=== PATIENT | female | born 1950 | race Caucasian/White ===

== ENCOUNTER 2016-12-12 14:21 | Emergency (ER) | payer OTHER ==
[~2016-12-12] VITALS: Ht 177.8 cm; Wt 94.8 kg
[2016-12-12] MEDS ORDERED: PHENYTOIN SODI100 MG PO (14:50)
[2016-12-12] MEDS ORDERED: METOPROLOL TART25 M1 PO (14:50)
--- NOTE | 2016-12-12 16:13 | ULTRASOUND REPORT ---
EXAMINATION: US DUPLEX EXTREMITY VEINS, RIGHT CLINICAL INFORMATION: Right leg swelling. Evaluate for deep vein thrombosis. COMPARISON: None TECHNIQUE: Grayscale imaging of the right lower extremity veins was performed, with and without compression, along with color Doppler and spectral Doppler interrogation. FINDINGS: There is echogenic thrombus filling the lumen of the common femoral vein. This is nearly completely occlusive at this level. Within the upper thigh, the visualized greater saphenous vein is patent. There is slow flow within the superficial femoral vein of the proximal, mid and distal thigh. The ocular care technologist notes that the popliteal vein was difficult to evaluate due to presence of soft tissue swelling. It was difficult to exclude nonocclusive thrombus in the popliteal vein, but suspicion for popliteal vein thrombus is low. The tibioperoneal trunk appears patent on the color Doppler images. No Bee's cyst. IMPRESSION: There is acute deep vein thrombosis filling the right common femoral vein and slow venous flow is observed below this level. It was difficult to exclude (low suspicion) nonocclusive thrombus in the popliteal vein. The critical test result was discussed with Dr. Newsome at 4:06 PM on 12/12/2016 and it was ascertained that the content and the importance of the findings was understood at the time of the direct communication.
--- NOTE | 2016-12-12 16:25 | ED UPPER/LOWER EXTREMITY COMPL ---
History of Present Illness General Chief Complaint: Lower Extremity Problems Stated Complaint: LOWER LEG PAIN Source: patient, family Exam Limitations: no limitations Vital Signs & Intake/Output Vital Signs & Intake/Output Vital Signs Date Time Temp Pulse Resp B/P Pulse O2 O2 Flow FiO2 Ox Delivery Rate 12/12 1839 97.6 112 22 151/63 97 Nasal 4.0L Cannula 12/12 1651 94 Nasal 4.0L Cannula 12/12 1645 122 24 160/74 94 Nasal 4.0L Cannula 12/12 1425 96.9 112 18 163/84 95 Room Air Allergies Coded Allergies: No Known Allergies (12/12/16) Reconcile Medications Metoprolol Tartrate 25 MG TABLET 1 TAB PO DAILY HEART (Reported) Phenytoin Sodium Extended 100 MG CAPSULE 1 CAP PO TID SEIZURES (Reported) Triage Note: PT C/O RLE SWELLING STARTING THIS AM.. PT DENIES PAIN AND STATES THAT IT JUST FEELS TIGHT. Triage Nurses Notes Reviewed? yes HPI: Miss Min is 66-year-old female with past medical history of seizures on Dilantin presenting to the emergency department for right leg swelling. States she woke up this morning in her right leg felt very weak and more swollen than the other. She does endorse bilateral lower extremity swelling which is chronic in nature however, the right leg is significantly more swollen than the left leg at this point in time. Patient denies any recent travel, immobilization, or surgeries. She does not use any exogenous estrogen. Patient denies chest pain, shortness of breath, abdominal pain, nausea, vomiting, diarrhea, fevers, chills. Past History Travel History Traveled to [place] past 21 day No Medical History Any Pertinent Medical History? see below for history Neurological: seizure Cardiovascular: FAST HEART RATE Surgical History Surgical History: none Psychosocial History What is your primary language Maltese Tobacco Use: Current Daily Use Daily Tobacco Use Amount/Type: => 5 Cigarettes daily Family History Hx Contributory? No Review of Systems Review of Systems Constitutional: Reports: no symptoms. Comments Review of systems: See HPI, all other systems negative. Constitutional, no chills, no fever, no weight loss. HEENT: No visual changes, no sore throat, no congestion, Cardiovascular: No chest pain, no palpitations, no orthopnea, or ankle swelling. Skin: No jaundice, no rashes Respiratory, no dyspnea, cough, sputum, or hemoptysis GI no nausea, no vomiting no dysuria, no hematuria, Muscle skeletal: No back pain, no neck pain. R leg pain and R leg swelling. Neurologic, no numbness no confusion Psych: No stress, anxiety, depression Heme/endocrine: No bruising, no bleeding polyuria, polydipSIA Physical Exam Physical Exam General Appearance: well developed/nourished, no apparent distress, alert, awake Head: atraumatic, normal appearance Eyes: Bilateral: normal appearance, PERRL, EOMI. Ears, Nose, Throat: normal pharynx, normal ENT inspection Neck: normal inspection, supple, full range of motion Cardiovascular/Respiratory: normal breath sounds, normal peripheral pulses, regular rate/rhythm, no respiratory distress Gastrointestinal: soft, nontender Back: normal inspection, normal range of motion Leg Right: swelling, assymetry, warm to touch Skin: intact, R leg warm to touch w/ mild erythema Progress Differential Diagnosis: cellulitis, compartment syndrome, DVT, fracture, sprain Plan of Care: Orders Procedure Date/time Status PARTIAL THROMBOPLASTIN TIME 12/12 2330 Active LACTIC ACID 12/12 1925 Active ARTERIAL BLOOD GAS (GEN) 12/12 1848 Active Add-on Test (ER Only) 12/12 1842 Active ECHOCARDIOGRAM 12/12 1842 Active EKG 12/12 1648 Active TROPONIN LEVEL 12/12 1635 Active B-TYPE NATRIURETIC PEP (BNP) 12/12 1635 Active PARTIAL THROMBOPLASTIN TIME 12/12 1625 Complete PROTHROMBIN TIME 12/12 1625 Complete LACTIC ACID 12/12 1625 Active CBC WITHOUT DIFFERENTIAL 12/12 1625 Complete BASIC METABOLIC PANEL 12/12 1625 Active Laboratory Tests 12/12/16 1635: Anion Gap 15, Estimated GFR > 60, BUN/Creatinine Ratio 26.0 H, Glucose 132 H, Lactic Acid 3.7 H, Calcium 10.1, Troponin I Pending, Rzu-W-Nbohesrcjhr Pept Pending, PT 12.1, INR 1.15, APTT 28, CBC w Diff NO MAN DIFF REQ, RBC 5.17, MCV 94.5, MCH 30.5, RDW 14.1, MPV 6.6 L, Gran % 74.8, Lymphocytes % 18.3 L, Monocytes % 5.4, Eosinophils % 1.1, Basophils % 0.4, Absolute Granulocytes 12.3 H, Absolute Lymphocytes 3.0, Absolute Monocytes 0.9 H, Absolute Eosinophils 0.2 , Absolute Basophils 0.1, PUBS MCHC 32.3 L 66 yo f w/ hx of seizures here for asymetric leg swelling. Patient denies any trauma to the area. Unable to PERC patient given age, but no other risk factors. R leg significant only more swollen than the left leg. However, the right leg is also warm to touch and slightly erythematous in comparison to the left leg. Likely superficial mild cellulitis, we will treat with by mouth Bactrim for now. Pt's EKG has evidence of R heart strain w/ [id number]. No trauma to suggest fracture. Leg is not hence therefore it is unlikely at the patient as compartment syndrome. Possible DVT, we'll obtain ultrasound to assess. US positive for DVT. Patient started on heparin. 4:30 PM Patient ambulated back from bathroom. Noted to be SOB by nurse Yamel. Vitals showed patient was tachycardic and hypoxic to 80 % on RA. Given this, will order basic labs to assess for creatitine function, likely obtain CTA PE. Pt ordered for 1L NS. Attempted to perform bedside US to evaluate for R heart strain. However, had a difficult time obtaining any images. Unable to evaluate. 6:30 PM Call from radiology. Pt has extensive clot burdern w/ saddle PE. Called [facility] for transfer. Discussed with Dr. Swenson. Will transfer patient directly to ICU for admission. Patient is aware of the plan and consets to transfer. (ANDREINA CANAS,[facility]) Diagnostic Imaging: Viewed by Me: CT Scan, Ultrasound. Discussed w/RAD: CT Scan, Ultrasound. Radiology Impression: R femoral DVT and saddle pulmonary embolism w/ extensive clot burden Initial ED EKG: sinus tachycardia w/ incomplete RBBB Departure Departure Time of Disposition: 1907 Disposition: OTHER [facility] (ACUTE) Condition: Stable Clinical Impression Primary Impression: Saddle embolus of pulmonary artery with acute cor pulmonale Qualifiers: Chronicity: acute Qualified Code: I26.02 - Saddle embolus of pulmonary artery with acute cor pulmonale Secondary Impressions: DVT (deep venous thrombosis) Qualifiers: DVT location: lower extremity Affected thrombotic vein of extremity : femoral Laterality: right Chronicity: acute Qualified Code: I82.411 - Acute embolism and thrombosis of right femoral vein Ruled Out Impressions: Saddle embolism of pulmonary artery Referrals: CB WING MD (PCP/Family) Additional Instructions: You will be transferred to [place] for further care of your pulmonary embolism. Departure Forms: Customer Survey General Discharge Information Critical Care Note Critical Care Note Critical Care Time: 30-74 min (45)
[2016-12-12 16:54] LABS: ABSOLUTE BASOPHIL COUNT 0.1 /CUMM (0.0-0.2); ABSOLUTE EOSINOPHIL COUNT 0.2 /CUMM (0.0-0.7); ABSOLUTE GRANULOCYTE CT 12.3 /CUMM (1.4-6.5); ABSOLUTE MONOCYTE COUNT 0.9 /CUMM (0.10-0.60); BASOPHIL % 0.4 % (0.0-2.0); EOSINOPHIL % 1.1 % (0-5); GRANULOCYTE % 74.8 % (42.2-75.2); HEMATOCRIT 48.8 % (37-47); MEAN CORPUSCULAR HGB 30.5 PG (27.0-31.0); MEAN CORPUSCULAR HGB CONC 32.3 G/DL (33.0-37.0); MEAN CORPUSCULAR VOLUME 94.5 FL (81.0-99.0); MEAN PLATELET VOLUME 6.6 FL (7.4-10.4); PLATELET COUNT 243 /CUMM (130-400); RBC DISTRIBUTION WIDTH 14.1 % (11.5-14.5); RED BLOOD CELL CT 5.17 /CUMM (4.20-5.40); WHITE BLOOD CELL COUNT 16.4 /CUMM (4.8-10.8)
[2016-12-12 17:03] LABS: PT 12.1 SEC (9.4-12.5); PTT 28 SEC (25-37)
[2016-12-12 18:39] VITALS: BP 151/63
--- NOTE | 2016-12-12 18:47 | CT SCAN REPORT ---
EXAMINATION: CT ANGIOGRAM OF THE CHEST WITH AND WITHOUT CONTRAST (CT PULMONARY ANGIOGRAM FOR PE) CLINICAL INFORMATION: Shortness of breath. Hypoxic. COMPARISON: None TECHNIQUE: Prior to contrast administration, noncontrast localization images were obtained. Subsequently, multidetector volumetric imaging was performed from the thoracic inlet to below the diaphragms following the administration of 80 mL Omnipaque 350 intravenous contrast. No contrast reaction reported Sagittal, coronal, and MIP oblique sagittal reformatted images were obtained on the CT workstation, uploaded to PACS, and reviewed. Total exam dose-length product 518.67 mGy-cm FINDINGS: QUALITY OF STUDY/CONTRAST BOLUS: Satisfactory. PULMONARY ARTERIES: There is a saddle embolus. Extensive emboli are seen in the right and left main pulmonary artery extending into all lobes of both lungs. There is bulging of the cardiac septum consistent with right heart strain. THORACIC AORTA: No dissection or aneurysm. The ascending aorta measures 3.6 cm transverse. LUNG: Rubio emphysematous lucencies throughout the lung. No acute infiltrate. Scarring at lung bases. 1.9 x 1.3 cm nodular opacity at the posterior left costophrenic angle. PLEURA: No pleural effusion or pneumothorax. MEDIASTINUM: Enlarged right lobe of thyroid. This measures 8 cm AP and displaces the trachea to left. Left lobe thyroid measures 3.5 cm AP. Ultrasound can be used for further assessment of the thyroid. CHEST WALL/AXILLA: No axillary or internal mammary lymphadenopathy. OSSEOUS STRUCTURES: No acute or suspicious osseous abnormality. UPPER ABDOMEN: Unremarkable. No reflux of contrast into the hepatic veins to suggest elevated right heart pressures. IMPRESSION: 1. Extensive bilateral pulmonary bullae including a saddle embolus. Right heart strain. 2. Marked emphysematous changes of lungs. 3. 1.9 x 1.3 cm Nodular opacity at the posterior left costophrenic angle. 4. Enlarged right lobe of thyroid. This critical result was discussed with Dr. Newsome on 12/12/2016, 6:40 PM and it was ascertained that the content and urgency of the report was understood at the time of direct communication. VTE: Positive for pulmonary embolism
--- NOTE | 2016-12-12 18:50 | History & Physical ---
General Information and HPI MD Statement: I have seen and personally examined ESTEFANYESTELLE BARILLAS and documented this H&P. The patient is a 66 year old F who presented with a patient stated chief complaint of []. Allergies/Medications Allergies: Coded Allergies: No Known Allergies (12/12/16) Home Med list Metoprolol Tartrate 25 MG TABLET 1 TAB PO DAILY HEART (Reported) Phenytoin Sodium Extended 100 MG CAPSULE 1 CAP PO TID SEIZURES (Reported) Past History Travel History Traveled to [place] past 21 day No Medical History Neurological: seizure Cardiovascular: FAST HEART RATE Surgical History Surgical History: none
== END 2016-12-12 19:36 | disposition short-term general hospital (02) ==
LOC: ERH 14:21
PROVIDERS: Emergency Medicine
DX: I26.02 Saddle embolus of pulmonary artery with acute cor pulmonale (principal); I82.411 Acute embolism and thrombosis of right femoral vein
CPT/HCPCS: 93005; 93010; 96374; 99291; J1644

== ENCOUNTER 2017-01-01 12:23 | Emergency (ER) | payer OTHER ==
[~2017-01-01] VITALS: Ht 177.8 cm; Wt 93.4 kg
[~2017-01-01 12:23] MED LIST: METOPROLOL TART25 M1 PO; PHENYTOIN SODI100 MG PO
--- NOTE | 2017-01-01 13:22 | ED SKIN/ALLERGY COMPLAINT ---
History of Present Illness General Chief Complaint: Lower Extremity Problems Stated Complaint: "RED DIONY ON R LEG" Source: patient, family, old records Exam Limitations: no limitations Vital Signs & Intake/Output Vital Signs & Intake/Output Vital Signs Date Time Temp Pulse Resp B/P Pulse O2 O2 Flow FiO2 Ox Delivery Rate 01/01 1357 97.2 88 20 160/70 98 Room Air 01/01 1232 96.9 74 18 142/74 96 Room Air Allergies Coded Allergies: No Known Allergies (12/12/16) Reconcile Medications Metoprolol Tartrate 25 MG TABLET 1 TAB PO DAILY HEART (Reported) Phenytoin Sodium Extended 100 MG CAPSULE 1 CAP PO TID SEIZURES (Reported) Warfarin Sodium 5 MG TABLET 1 TAB PO DAILY DVT (Reported) Triage Note: PT TO ED FOR "RED DIONY ON MY UPPER RIGHT THIGH THAT BEGAN THIS MORNING" PT REPORTING SHE WAS RECENTLY SEEN AT [facility] FOR A DVT THAT BECAME A PE DURING HER STAY - STATING IT "STARTED THE SAME WAY BEFORE" PT DENIES ANY CP, SOB, HARP, FEVER, PAIN. CURRENTLY ON COUMADIN, LAST INR CHECKED THURSDAY AND IT WAS 2.4 PER PT. Triage Nurses Notes Reviewed? yes HPI: Patient was recently discharged from the hospital after admission for DVT and PE. Patient was on Lovenox but that was stopped culture: And became therapeutic. Patient woke up this morning and noticed a red area on her right inner thigh. Patient became concerned and comes in for evaluation. Patient denies any pain. There are no fevers or chills. There are no aggravating or mitigating factors. There is no radiation. It is nontender to touch. Past History Travel History Traveled to [place] past 21 day No Medical History Any Pertinent Medical History? 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 No Review of Systems Review of Systems Constitutional: Reports: no symptoms. Respiratory: Reports: no symptoms. Cardiovascular: Reports: no symptoms. GI: Reports: no symptoms. Skin: Reports: see HPI. Neurological/Psychological: Reports: no symptoms. Immunologic/Allergic: Reports: no symptoms. Physical Exam Physical Exam General Appearance: well developed/nourished, alert, awake, anxious, mild distress Eyes: Bilateral: PERRL, EOMI. Respiratory: normal breath sounds, chest non-tender, no respiratory distress, lungs clear Cardiovascular: regular rate/rhythm, normal peripheral pulses Neurologic/Psych: no motor/sensory deficits, awake, alert, oriented x 3, normal mood/affect Comments: 10 cm x 3 cm area of erythema to the right lower inner thigh. It is not hot to the touch. It is nontender. There is no inguinal adenopathy. Progress Differential Diagnosis: abscess/cellulitis, contact dermatitis Plan of Care: Orders Procedure Date/time Status PROTHROMBIN TIME 01/01 1321 Complete COMPREHENSIVE METABOLIC PANEL 01/01 1321 Complete CBC WITHOUT DIFFERENTIAL 01/01 1321 Complete Laboratory Tests 01/01/17 1352: PT 30.5 H, INR 2.94 H, CBC w Diff NO MAN DIFF REQ, RBC 4.78, MCV 92.3, MCH 31.2 H, RDW 14.6 H, MPV 6.5 L, Gran % 78.4 H, Lymphocytes % 14.8 L, Monocytes % 5.7, Eosinophils % 0.8, Basophils % 0.3, Absolute Granulocytes 11.7 H, Absolute Lymphocytes 2.2, Absolute Monocytes 0.9 H, Absolute Eosinophils 0.1 , Absolute Basophils 0, PUBS MCHC 33.8 01/01/17 1342: Anion Gap 11, Estimated GFR > 60, BUN/Creatinine Ratio 22.0, Glucose 107 H, Calcium 9.4, Total Bilirubin 0.7, AST 27, ALT 32, Alkaline Phosphatase 144 H, Total Protein 7.8, Albumin 4.1, Globulin 3.7, Albumin/Globulin Ratio 1.1 Departure Departure Disposition: HOME OR SELF CARE Condition: Stable Clinical Impression Primary Impression: Rash Referrals: CB WING MD (PCP/Family) Additional Instructions: RETURN FOR ANY CONCERNS Departure Forms: Customer Survey General Discharge Information
[2017-01-01] MEDS ORDERED: WARFARIN SODIUM5 M1 PO (13:53)
[2017-01-01 13:57] VITALS: BP 160/70
[2017-01-01 14:14] LABS: ABSOLUTE BASOPHIL COUNT 0 /CUMM (0.0-0.2); ABSOLUTE EOSINOPHIL COUNT 0.1 /CUMM (0.0-0.7); ABSOLUTE GRANULOCYTE CT 11.7 /CUMM (1.4-6.5); ABSOLUTE LYMPH COUNT 2.2 /CUMM (1.2-3.4); ABSOLUTE MONOCYTE COUNT 0.9 /CUMM (0.10-0.60); BASOPHIL % 0.3 % (0.0-2.0); EOSINOPHIL % 0.8 % (0-5); GRANULOCYTE % 78.4 % (42.2-75.2); HEMATOCRIT 44.1 % (37-47); MEAN CORPUSCULAR HGB 31.2 PG (27.0-31.0); MEAN CORPUSCULAR HGB CONC 33.8 G/DL (33.0-37.0); MEAN CORPUSCULAR VOLUME 92.3 FL (81.0-99.0); MEAN PLATELET VOLUME 6.5 FL (7.4-10.4); PLATELET COUNT 166 /CUMM (130-400); RBC DISTRIBUTION WIDTH 14.6 % (11.5-14.5); RED BLOOD CELL CT 4.78 /CUMM (4.20-5.40)
[2017-01-01 14:21] LABS: PT 30.5 SEC (9.4-12.5)
== END 2017-01-01 14:38 ==
LOC: ERH 12:23
PROVIDERS: Emergency Medicine
DX: R21 Rash and other nonspecific skin eruption (principal); Z79.01 Long term (current) use of anticoagulants

== ENCOUNTER 2017-03-17 14:40 | Inpatient (IN) | payer OTHER ==
[~2017-03-17] VITALS: Ht 172.7 cm; Wt 75.8 kg
[~2017-03-17 14:40] MED LIST changes: +WARFARIN SODIUM5 M1 PO
--- NOTE | 2017-03-17 14:54 | ED CRITICAL CARE ---
History of Present Illness General Chief Complaint: General Adult Stated Complaint: BIBA PAIN? Source: family, EMS, W10 Exam Limitations: clinical condition Vital Signs & Intake/Output Vital Signs & Intake/Output Vital Signs Date Time Temp Pulse Resp B/P B/P Pulse O2 O2 Flow FiO2 Mean Ox Delivery Rate 03/19 1600 Nasal 2.0L Cannula 03/19 1402 97.7 110 20 125/90 98 03/19 0828 98.8 115 22 158/88 94 03/19 0800 Nasal 2.0L Cannula 03/19 0000 Nasal 2.0L Cannula ED Intake and Output 03/19 0000 03/18 1200 Intake Total 0 Output Total 425 350 Balance -425 -350 Intake, Oral 0 Output, Urine 425 350 Allergies Coded Allergies: pseudoephedrine (UNKNOWN PER 03/17/17) Reconcile Medications Acetaminophen (Pain & Fever) 325 MG TABLET 2 TAB PO Q4H PRN PAIN/TEMP>101 ( Reported) Acetaminophen (Acephen) 650 MG SUPP.RECT 1 SUPP RI Q4H PRN PAIN/TEMP>101 ( Reported) Aspirin (Ecotrin*) 81 MG TABLET.DR 1 TAB PO DAILY PROPHYLAXIS (Reported) Atorvastatin Calcium 80 MG TABLET 1 TAB PO DAILY CHOLESTEROL (Reported) Bisacodyl (Dulcolax) 10 MG SUPP.RECT 1 SUP RC PRN CONSTIPATION (Reported) Bisacodyl (Dulcolax) 5 MG TABLET.DR 1 TAB PO Q24H PRN CONSTIPATION (Reported) Enoxaparin Sodium 100 MG/ML SYRINGE 100 MG SC Q12H PULMONARY EMBOLISM ( Reported) Fluoxetine HCl 20 MG CAPSULE 1 CAP PO DAILY DEPRESSION (Reported) Furosemide (Lasix) 20 MG TABLET 1 TAB PO DAILY CHRONIC A FIB (Reported) Ipratropium/Albuterol Sulfate (Iprat-Albut 0.5-3(2.5) MG/3 Ml) 0.5 MG-3 MG (2.5 MG BASE)/3 ML AMPUL.NEB 3 ML INH Q6H PRN SOB/WHEEZING WHILE AWAKE (Reported) Lactulose 20 GRAM/30 ML SOLUTION 30 ML PO DAILY CONSTIPATION (Reported) Lorazepam 2 MG/ML ORAL.CONC 0.5 MG SL Q4H PRN INCREASED ANXIETY (Reported) Magnesium Hydroxide (Milk Of Magnesia) 400 MG/5 ML ORAL.SUSP 30 ML PO PRN CONSTIPATION (Reported) Magnesium Hydroxide (Milk Of Magnesia) 400 MG/5 ML ORAL.SUSP 30 ML PO PRN CONSTIPATION (Reported) Metoprolol Tartrate 25 MG TABLET 1 TAB PO Q8H CEREBRAL INFARCTION (Reported) Morphine Sulfate 20 MG/5 ML (4 MG/ML) SOLUTION 5 MG SL AD PRN SEVERE PAIN ( Reported) Morphine Sulfate 20 MG/5 ML (4 MG/ML) SOLUTION 5 MG SL Q4H PRN PAIN/RESP>28 ( Reported) Multivitamin (Multi-Day Vitamins) 1 EACH TABLET 1 TAB PO DAILY SUPPLEMENT ( Reported) Na Phos,M-B/Na Phos,Di-Ba (Fleet Enema) 19 GRAM-7 GRAM/118 ML ENEMA 1 E RC PRN CONSTIPATION (Reported) Ondansetron HCl (Zofran) 4 MG TABLET 1 TAB PO Q4H PRN N/V (Reported) Phenytoin Sodium Extended 100 MG CAPSULE 1 CAP PO TID SEIZURES (Reported) Pregabalin (Lyrica) 25 MG CAPSULE 1 CAP PO QHS RLS (Reported) Protein Supplement (Promod) 946 ML LIQUID 30 ML PO BID SUPPLEMENT (Reported) Tramadol HCl 50 MG TABLET 25 MG PO Q6H PRN PAIN (Reported) Warfarin Sodium 5 MG TABLET 1 TAB PO DAILY DVT (Reported) Triage Nurses Notes Reviewed? 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 According to EMS the ECF report states they gave her ativan without any effect. Her sister ( current POA) and prakash state that last night she was able to recognize and communicate with them. Today is a drastic change from her new baseline. She is supposed to go to [facility] mid March for her first oncology appointment and they are waiting to hear how advanced her disease is. She is currently DNR/DNI. Past History Medical History Any Pertinent Medical History? 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 No Review of Systems Review of Systems Constitutional: Reports: see HPI (AGITATION). Physical Exam Physical Exam General Appearance: awake, anxious, moderate distress, severe distress, thin Head: atraumatic Eyes: Bilateral: PERRL, EOMI. Ears, Nose, Throat, Mouth: DRY MUCUS MEMBRANES, DRIED BLOOD IN MOUTH Respiratory: decreased breath sounds, respiratory distress Cardiovascular: tachycardia Peripheral Pulses: 1+ radial (R), 1+ radial (L) Gastrointestinal: soft, tenderness (RUQ) Back: normal inspection Extremities: MOVING BOTH UPPER EXTREMITIES Neurologic/Psych: MOANING, AWAKE, CONFUSED, NON VERBAL Skin: DRY, POOR SKIN TURGOR Core Measures ACS in differential dx? Yes ASA ordered for poss ACS? DEFERRED PER HOUSESTAFF CVA/TIA Diagnosis: No Severe Sepsis Present: Yes BC x2: Yes Lactic Acid x2: Yes IV ABX Broad Spectrum: Yes NS/LR Started: Yes Septic Shock Present: No Progress Differential Diagnoses I considered the following diagnoses in my evaluation of the patient: [SVT, AFIB RVR, SEPSIS, ACS, AMI, UTI, PNA, LIVER MASS, CHOLANGITIS] Plan of Care: Orders Procedure Date/time Status Transfer Disposition 03/19 1304 Active Arellano, Insertion/Removal/Asses 03/19 1053 Active OXYGEN SETUP (GEN) 03/18 1600 Complete OXYGEN SETUP CHG 03/18 UNK Complete OXYGEN 03/18 UNK Complete OXYGEN TRANSPORT 03/18 UNK Complete Current Medications Sig/Mil Start time Last Medication Dose Stop Time Status Admin Lorazepam 1 MG Q2P PRN 03/19 1100 AC 03/19 (Ativan) 1359 Morphine Sulfate 2 MG Q1 NEEDED PRN 03/18 1030 AC 03/19 (Morphine) 1907 Ceftriaxone Sodium 1,000 MG DAILY 03/18 1000 AC 03/19 (Rocephin) 0849 EKG, TELE MONITOR, PACER PADS. IV ACCESS X 2 STARTED, IV FLUID BOLUS, RI TYLENOL ORDERED. PATIENT PRESENTS WITH RECTAL TEMP 102, HEART RATE NARROW COMPLEX 220-230, NO VISIBLE P WAVES. PATIENT RECEIVED IV FLUIDS, RI TYLENOL. NO CHANGE WITH IV LOPRESSOR. PATIENT'S FAMILY REVEALS SHE MIGHT HAVE HAD RAPID AFIB AT [facility] DURING HER LAST ADMISSION. AFTER IV CARDIZEM 10 MG PATIENT CONVERTED TO RAPID AFIB AND THEN QUICKLY TO SINUS TACHYCARDIA. AFTER THAT PATIENT BECAME MUCH MORE CALM. NORMAL BLOOD PRESSURE. ELEVATED WBC, FEVER, LFT'S. RUQ ABDOMINAL PAIN, AMS. PATIENT WITH LIKELY ASCENDING CHOLANGITIS. IV ABX ORDERED. CT PENDING. CT CONSISTENT WITH LARGE YEHUDA HEPATIS MASS WITH BILIARY DUCTAL OBSTRUCTION. PATIETN D/W DR WING. PATIENT AGAIN IS DNR/DNI, FAMILY DOES NOT WANT AGGRESSIVE MEASURES. WILL ADMIT TO TELEMETRY. GI CONSULT DR CORNEJO OBTAINED. WILL SEE PATIENT IN THE ED. (DIANA CANAS,[facility]) Diagnostic Imaging: Viewed by Me: Radiology Read, CT Scan. Discussed w/RAD: Radiology Read, CT Scan. CXR Impression: no acute abnormality (PATIENT: ESTELLE ALLISON) Initial ED EKG: SVT @ 220 BPM Repeat EKG: changed (SINU STACHYCARDIA) Rhythm Strip: NARROW COMPLEX SVT Departure Departure Disposition: STILL A PATIENT Condition: Stable Clinical Impression Primary Impression: Ascending cholangitis Secondary Impressions: SVT (supraventricular tachycardia) Referrals: CB WING MD (PCP/Family) Departure Forms: Customer Survey General Discharge Information Admission Note Spoke With: CB WING MD Documentation of Exam: Documentation of any treatments & extenuating circumstances including Concerns Regarding Discharge (functional status, medication knowledge or non-compliance, living conditions, etc.) that warrant an admission rather than observation: [ TELE MONITOR, IV ABX, IV FLUIDS, ANTIPYRETICS, GI CONSULT DR CORNEJO, MONITOR FOR DYSRHYTHMIAS, CARDIOLOGY EVALUATION, ONCOLOGY EVALUTAION, SERIAL EKG/ TROPONIN, F/U CULTURES Critical Care Note Critical Care Note Critical Care Time: 75-104 min
--- NOTE | 2017-03-17 15:18 | NUR ---
PT BIBA FROM [facility] FOR "AGITATION AND THEY JUST CAN'T CONTROL HER OVER THERE AND SHES TACHYCARDIC" PT ARRIVES TO ED AGITATED, TACHYCARDIC AT 198. ALCAZAR IN PLACE FROM ECF WITH LARGE AMOUNTS OF ORANGE SEDIMENT IN TUBE AND ALCAZAR BAG. PT AGITATED, DISORIENTED X 4. NOTED TO HAVE BLOOD IN MOUTH AND EMS STATING "STAFF AT THE ECF SAID SHE MIGHT OF HAD A SEIZURE BUT THEY WEREN'T SURE". DR ORTIZ IMMEDIATELY TO BEDSIDE TO [facility].
--- NOTE | 2017-03-17 15:18 | NUR ---
DR ORTIZ AT BEDSIDE AND AWARE OF DNR/DNI PAPERWORK IN CHART. PT REMAINS MINIMALLY RESPONSIVE TO LOPRESSOR IV AND REMAINS TACHYCARDIC RATE 190'S ON MONITOR. MEDICATED WITH SC TYLENOL PER ORDER FOR TEMP 102.1 RECTALLY AND BILATERAL PERIPHERAL IV'S INSERTED FOR FLUID RESCUCITATION, MUCOUS MEMBRANES DRY. 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 FAMILY IN CONSULTATION ROOM AND DENY REASONING FOR LIMITED EXT TO R ARM
--- NOTE | 2017-03-17 15:24 | NUR ---
PT MEDICATED WITH CARDIAZEM 10MG IVP.
--- NOTE | 2017-03-17 15:26 | NUR ---
PT RATE 94, BP 125/60 POST MEDICATION ADMIN. PT NOW CALM AND RESTING ON STRETCHER
[2017-03-17 15:41] LABS: ABSOLUTE BASOPHIL COUNT 0.1 /CUMM (0.0-0.2); ABSOLUTE EOSINOPHIL COUNT 0.1 /CUMM (0.0-0.7); ABSOLUTE GRANULOCYTE CT 12.6 /CUMM (1.4-6.5); ABSOLUTE MONOCYTE COUNT 1.1 /CUMM (0.10-0.60); BASOPHIL % 0.3 % (0.0-2.0); EOSINOPHIL % 0.3 % (0-5); GRANULOCYTE % 79.6 % (42.2-75.2); HEMATOCRIT 36.2 % (37-47); MEAN CORPUSCULAR HGB 27.8 PG (27.0-31.0); MEAN CORPUSCULAR VOLUME 86.7 FL (81.0-99.0); MEAN PLATELET VOLUME 7.8 FL (7.4-10.4); PLATELET COUNT 424 /CUMM (130-400); RBC DISTRIBUTION WIDTH 17.5 % (11.5-14.5); RED BLOOD CELL CT 4.18 /CUMM (4.20-5.40); WHITE BLOOD CELL COUNT 15.8 /CUMM (4.8-10.8)
--- NOTE | 2017-03-17 15:42 | NUR ---
PT HR REMAINS AT 96, BP 126/59. 1ST LITER NS BOLUS COMPLETE. 2ND LITER CONTINUES TO INFUSE. URINE SAMPLES OBTAINED FROM [facility] AND SENT TO LAB ([facility]). FAMILY AT BEDSIDE AND INFORMED OF PT'S CONDITION
[2017-03-17 15:49] LABS: PT 17.7 SEC (9.4-12.5); PTT 40 SEC (25-37)
[2017-03-17] MEDS ORDERED: FLUOXETINE HCL20 M2 PO (15:59)
[2017-03-17] MEDS ORDERED: LACTULOSE20 GM/30 M PO (15:59)
[2017-03-17] MEDS ORDERED: MORPHINE S20 MG/5 ML SL ×2 (16:04→16:08)
[2017-03-17] MEDS ORDERED: ZOFRAN4 M2 PO (16:05)
[2017-03-17] MEDS ORDERED: LORAZEPAM2 MG/1 M2 SL (16:05)
[2017-03-17] MEDS ORDERED: PROMOD946 ML PO (16:12)
[2017-03-17] MEDS ORDERED: LYRICA25 M1 PO (16:13)
[2017-03-17] MEDS ORDERED: TRAMADOL HCL50 M1 PO (16:13)
[2017-03-17] MEDS ORDERED: ASPIRIN EC81 M1 PO (16:14)
[2017-03-17] MEDS ORDERED: MULTI-DAY VITA1 EACH PO (16:15)
[2017-03-17] MEDS ORDERED: ATORVASTATIN CA80 M1 PO (16:15)
[2017-03-17] MEDS ORDERED: ENOXAPARIN100 MG/1 M SC (16:15)
[2017-03-17] MEDS ORDERED: MILK OF MA400 MG/52 PO ×2 (16:16→16:20)
[2017-03-17] MEDS ORDERED: LASIX20 M1 PO (16:16)
[2017-03-17] MEDS ORDERED: DULCOLAX10 M1 RC (16:20)
[2017-03-17] MEDS ORDERED: FLEET ENEMA133 ML RC (16:21)
[2017-03-17] MEDS ORDERED: DULCOLAX5 M1 PO (16:25)
[2017-03-17] MEDS ORDERED: PAIN & FEVER325 M1 PO (16:26)
[2017-03-17] MEDS ORDERED: ACEPHEN650 M1 PR (16:33)
[2017-03-17] MEDS ORDERED: IPRAT-ALBUT 0.5-3 ML INH (16:34)
--- NOTE | 2017-03-17 16:47 | NUR ---
3RD LITER NS BOLUS STARTED. PT MEDICATED WITH FORATZ 1,000MG. PT ALSO MEDICATED WITH VANCOMYCIN 1,000MG/250ML AT 250ML/HR
--- NOTE | 2017-03-17 16:56 | RADIOLOGY REPORT ---
EXAMINATION: XR PORTABLE CHEST CLINICAL INFORMATION: Tachycardia. Acute mental status change. Per chart: Emphysema. History of pulmonary emboli. (DVT). Pulmonary nodule opacity posterior left costophrenic angle. Thyromegaly. COMPARISON: CT of the chest on 12/12/2016. TECHNIQUE: Portable AP semierect view of the chest was obtained. FINDINGS: Extensive emphysematous changes are seen particularly in the right upper lobe. An ill-defined patchy opacity is located in the lower right lung. This could represent an area of early pneumonia. Left lung is essentially clear. Deviation of the trachea to the left at the thoracic inlet is secondary to the very large right lobe of thyroid gland. IMPRESSION: Patchy opacity right lower chest which could represent early pneumonia. Emphysema. Thyromegaly.
--- NOTE | 2017-03-17 17:11 | NUR ---
CRITICAL TEST RESULTS [id number] ESTELLE ALLISON 66 F TESTS AND RESULTS: LACTIC 2.1 Results received and read back by: AGUSTIN GAMA Results received date and time: 03/17/17 1711 The following provider was notified of the results, and read the results back: DR ORTIZ Notified date and time: 03/17/17 at 5:11
--- NOTE | 2017-03-17 17:42 | NUR ---
PT TO AND FROM CT SCAN VIA STRETCHER WITH THIS RN WITHOUT INCIDENT. REPEAT RECTAL TEMP 99.7. DR ORTIZ INFORMED
--- NOTE | 2017-03-17 17:59 | CT SCAN REPORT ---
EXAMINATION: CT ABDOMEN AND PELVIS WITH CONTRAST CLINICAL INFORMATION: Fever. History of pancreatic cancer. Elevated LFTs. COMPARISON: CT of chest 12/12/2016 TECHNIQUE: Multidetector volumetric imaging was performed of the abdomen and pelvis after the IV administration of 95 mL of Optiray 320 intravenous contrast. Sagittal and coronal reformatted images were obtained on the technologist's workstation. DLP: 949.97 mGy-cm FINDINGS: There is breathing motion which limits study. LUNG BASES: Emphysematous lucency of lung bases. Linear scarring/subsegmental atelectasis at both lung bases. No pleural effusion. LIVER, GALLBLADDER, AND BILIARY TREE: There is a large low attenuating lesion in the left lobe of liver at the jay hepatis. This has indistinct margins. Measures approximately 6 x 4 x 5 cm. There is intrahepatic bile duct dilatation. Intrahepatic bile duct dilatation is new since CAT scan of the chest of 12/12/2016. Gallbladder is distended. No calcified gallstone. No edema around the gallbladder. PANCREAS: The pancreas is atrophic. No pancreatic duct dilatation. No inflammation of the pancreas. The head and uncinate process of the pancreas are heterogeneous in density but not enlarged SPLEEN: Unremarkable. ADRENAL GLANDS: Unremarkable. KIDNEYS AND URETERS: The kidneys are normal in size, shape, and attenuation. No hydronephrosis, hydroureter, or calculi seen. No perinephric stranding. BLADDER: Arellano catheter within the bladder. GASTROINTESTINAL TRACT: Marked diverticulosis of the left colon and sigmoid. No diverticulitis. No acute change of the bowel. No bowel obstruction. No bowel wall thickening or edema. Small bowel loops are normal. The appendix is not identified. ABDOMINAL WALL: No significant hernia is appreciated. LYMPH NODES: Normal. VASCULAR: Atherosclerotic vascular calcifications of aorta and iliac vessels without aneurysm. PELVIC VISCERA: Uterus is atrophic or absent. There is fluid in the cul-de-sac. OSSEOUS STRUCTURES: Levoscoliosis of lumbar spine. Degenerative joint disease of the hips with joint narrowing and spurring of femoral head and acetabula with subchondral cystic change about the acetabulum femoral heads. IMPRESSION: Intrahepatic bile duct dilatation with large low attenuating mass at the jay hepatis. Neoplasm suspected. This critical result was discussed with Dr. Valentin on 03/17/2017, 5:50 PM and it was ascertained that the content and urgency of the report was understood at the time of direct communication. Dr. Valentin noted that the patient has had a liver biopsy previously at [facility].
--- NOTE | 2017-03-17 18:27 | History & Physical ---
See Addendum JOANA CANAS,[facility] 03/17/17 1756: General Information and [facility] MD Statement: I have seen and personally examined ESTELLE ALLISON and documented this H&P. The patient is a 66 year old F who presented with a patient stated chief complaint of []. History of Present Illness: [facility] 66[facility] lower extremity DVT(12/12), PE, ischemic stroke 2(02/11), liver mass likely malignant, was sent in for evaluation of agitation. She was found to be very agitated today at alf and was thus brought in for further evaluations. Majority of history was obtained from the sister is patient was nonverbal and in moderate distress. As per sister last she talk to her was last night over the phone, and she appeared to be in her usual state of health, she does have baseline slurred speech but is comprehensible. She states that everything started earlier his ear in November when she was diagnosed with left leg DVT, which progressed to PE for which she was admitted at [facility],she was started on Coumadin but while on Coumadin she developed DVT in her right leg. In January she had an episode of ischemic stroke for which she was admitted at [facility] and what she was admitted she developed another massive stroke. Lately she has been eating pured food and hardly finishing 50% of her food, for the past couple of days she has been complaining of pain and gas-like feeling in her abdomen accompanied with low appetite and at times nausea, but otherwise denied any fever, chills. She has been diagnosed with a liver mass which likely is malignant, has seen Dr. Grimes and she was supposed to start therapy at the [facility]. She has been smoking for all her life up until first episode of DVT. Denies any alcohol use, denies any illicit drug abuse. Allergies/Medications Allergies: Coded Allergies: pseudoephedrine (UNKNOWN PER 03/17/17) Home Med list Acetaminophen (Pain & Fever) 325 MG TABLET 2 TAB PO Q4H PRN PAIN/TEMP>101 ( Reported) Acetaminophen (Acephen) 650 MG SUPP.RECT 1 SUPP WA Q4H PRN PAIN/TEMP>101 ( Reported) Aspirin (Ecotrin*) 81 MG TABLET.DR 1 TAB PO DAILY PROPHYLAXIS (Reported) Atorvastatin Calcium 80 MG TABLET 1 TAB PO DAILY CHOLESTEROL (Reported) Bisacodyl (Dulcolax) 10 MG SUPP.RECT 1 SUP RC PRN CONSTIPATION (Reported) Bisacodyl (Dulcolax) 5 MG TABLET.DR 1 TAB PO Q24H PRN CONSTIPATION (Reported) Enoxaparin Sodium 100 MG/ML SYRINGE 100 MG SC Q12H PULMONARY EMBOLISM ( Reported) Fluoxetine HCl 20 MG CAPSULE 1 CAP PO DAILY DEPRESSION (Reported) Furosemide (Lasix) 20 MG TABLET 1 TAB PO DAILY CHRONIC A FIB (Reported) Ipratropium/Albuterol Sulfate (Iprat-Albut 0.5-3(2.5) MG/3 Ml) 0.5 MG-3 MG (2.5 MG BASE)/3 ML AMPUL.NEB 3 ML INH Q6H PRN SOB/WHEEZING WHILE AWAKE (Reported) Lactulose 20 GRAM/30 ML SOLUTION 30 ML PO DAILY CONSTIPATION (Reported) Lorazepam 2 MG/ML ORAL.CONC 0.5 MG SL Q4H PRN INCREASED ANXIETY (Reported) Magnesium Hydroxide (Milk Of Magnesia) 400 MG/5 ML ORAL.SUSP 30 ML PO PRN CONSTIPATION (Reported) Magnesium Hydroxide (Milk Of Magnesia) 400 MG/5 ML ORAL.SUSP 30 ML PO PRN CONSTIPATION (Reported) Metoprolol Tartrate 25 MG TABLET 1 TAB PO Q8H CEREBRAL INFARCTION (Reported) Morphine Sulfate 20 MG/5 ML (4 MG/ML) SOLUTION 5 MG SL AD PRN SEVERE PAIN ( Reported) Morphine Sulfate 20 MG/5 ML (4 MG/ML) SOLUTION 5 MG SL Q4H PRN PAIN/RESP>28 ( Reported) Multivitamin (Multi-Day Vitamins) 1 EACH TABLET 1 TAB PO DAILY SUPPLEMENT ( Reported) Na Phos,M-B/Na Phos,Di-Ba (Fleet Enema) 19 GRAM-7 GRAM/118 ML ENEMA 1 E RC PRN CONSTIPATION (Reported) Ondansetron HCl (Zofran) 4 MG TABLET 1 TAB PO Q4H PRN N/V (Reported) Phenytoin Sodium Extended 100 MG CAPSULE 1 CAP PO TID SEIZURES (Reported) Pregabalin (Lyrica) 25 MG CAPSULE 1 CAP PO QHS RLS (Reported) Protein Supplement (Promod) 946 ML LIQUID 30 ML PO BID SUPPLEMENT (Reported) Tramadol HCl 50 MG TABLET 25 MG PO Q6H PRN PAIN (Reported) Warfarin Sodium 5 MG TABLET 1 TAB PO DAILY DVT (Reported) Past History Travel History Traveled to [place] past 21 day No Medical History Neurological: SEIZURE STROKE EENT: NONE Cardiovascular: AFIB, FAST HEART RATE Respiratory: pulmonary embolism Gastrointestinal: NONE Hepatic: NONE Renal: NONE Musculoskeletal: NONE Psychiatric: depression Endocrine: NONE Blood Disorders: NONE Cancer(s): pancreatic cancer SAXOPHONE PLAYER/Reproductive: NONE Other Medical Hx: DVT Surgical History Surgical History: none Past Family/Social History Psychosocial History ETOH Use: denies use Illicit Drug Use: denies illicit drug use Exam & Diagnostic Data Last 24 Hrs of Vital Signs/I&O Vital Signs Date Time Temp Pulse Resp B/P B/P Pulse O2 O2 Flow FiO2 Mean Ox Delivery Rate 03/17 1743 99.7 88 18 122/60 96 Room Air 03/17 1700 Nasal 2.0L Cannula 03/17 1615 100.7 03/17 1614 100.7 98 18 123/60 95 Nasal Cannula 03/17 1552 98 16 126/59 94 Nasal Cannula 03/17 1529 98 16 125/60 95 Room Air 03/17 1518 102.1 03/17 1446 131/76 Intake & Output 03/17 1600 03/17 0800 03/17 0000 Intake Total 1000 Output Total Balance 1000 Intake, IV 1000 Patient 75.75 kg Weight Weight Reported by Patient Measurement Method Physical Exam General Appearance Moderate Distress, lethargic, moaning in pain, non verbal Cardiovascular Regular Rate, Normal S1, Normal S2 Lungs Clear to Auscultation, Normal Air Movement Abdomen Normal Bowel Sounds, Soft Extremities b/l lle edema 2+ Last 24 Hrs of Labs/Sundeep: Laboratory Tests 03/17/17 1600: Lactic Acid 2.1 03/17/17 1600: Ammonia 10 03/17/17 1538: Urine Color ORANG H, Urine Clarity TURBD H, Urine pH 6.5, Ur Specific [place] 1.025, Urine Protein >=300 H, Urine Ketones TRACE H, Urine Nitrite POS H, Urine Bilirubin POS@ICTO H, Urine Urobilinogen 4.0 H, Ur Leukocyte Esterase LARGE H, Ur Microscopic SEDIMENT EXAMINED, Urine RBC 10-15 H, Urine WBC PACKD H, Urine Crystals 1+ CA OX H, Urine Bacteria PACKD H, Urine Hemoglobin LARGE H, Urine Glucose NEG 03/17/17 1520: Anion Gap 10, Estimated GFR > 60, BUN/Creatinine Ratio 31.7 H, Glucose 115 H, Lactic Acid 3.1 H, Calcium 8.4, Total Bilirubin 5.5 H, AST 376 H, ALT 233 H, Alkaline Phosphatase 802 H, Creatine Kinase 85, Troponin I 0.06, Total Protein 6.6, Albumin 2.9 L, Globulin 3.7, Albumin/Globulin Ratio 0.8 L, Lipase 113, PT 17.7 H, INR 1.69 H, APTT 40 H, CBC w Diff NO MAN DIFF REQ, RBC 4.18 L, MCV 86.7, MCH 27.8, RDW 17.5 H, MPV 7.8, Gran % 79.6 H, Lymphocytes % 12.7 L, Monocytes % 7.1, Eosinophils % 0.3, Basophils % 0.3, Absolute Granulocytes 12.6 H, Absolute Lymphocytes 2.0, Absolute Monocytes 1.1 H, Absolute Eosinophils 0.1 , Absolute Basophils 0.1, PUBS MCHC 32.0 L Microbiology 03/17 1615 BLOOD: Blood Culture - RECD 03/17 1600 BLOOD: Blood Culture - RECD 03/17 1530 URINE ROUT: Urine Culture - RECD Assessment/Plan Assessment: [facility] 66[facility] lower extremity DVT(12/12), PE, ischemic stroke 2(02/11), liver mass likely malignant, was sent in for evaluation of agitation. Vitals upon presentation febrile to 102.1, pulse 98, respiratory rate 16, blood pressure 131/76, satting in mid 90s on room air. Pertinent labs WBC 15.8, H&H 11.6 and 36.2, platelets 424, BUN and creatinine 19 and 0.6, lactic acid 3.1, total bili 5.5, AST 376, ALT 233, alkaline phosphatase 802, We will admit the patient to telemetry floor and monitor for the following conditions: Sepsis likely secondary to UTI : Febrile, tachycardic, white count elevated, UA positive for evidence of UTI, Given one dose of vanco and ceftazidimein ER. patient started on ceftriaxone, will follow up urine and blood cultures. Altered mental status/agitation : Continuous telemetry monitoring CT head showed evidence of Right MCA territorial subacute infarct with questionable associated hemorrhage versus enhancement, left-sided dural hematoma Echocardiogram has been ordered Carotid Dopplers ordered SVT: Cont cardiac monitoring ?Afib with RVR Heart rate was in 220, patient as per ER notes was too weak to receive adenosine , and was thus given one dose of cardizem, will monitor heart rate, if reqd patient will be started on cardizem drip Elevated liver enzymes : Patient has been diagnosed with a malignant liver mass, she was to get treated at [facility] in March, oncology consult has been placed, with follow-up recommendations GI on board, will follow-up recommendations DVT prophylaxis with Alps Patient nothing by mouth Pain pathway And is DNR/DNI As Ranked By This Provider Problem List: 1. Supraventricular tachycardia Core Measures/Miscellaneous Acute Coronary Syndrome ACS Diagnosis: No Cerebrovascular Accident CVA/TIA Diagnosis: No Congestive Heart Failure CHF Diagnosis: No VTE (View Protocol) VTE Risk Factors: Acute medical illness, Age > 40 No [facility] VTE prophylaxis d/t: No contraindications No VTE Pharm Prophylaxis d/t: No contraindications VTE Diagnosis: No VTE Type: NONE VTE Confirmed by (Test): NONE Sepsis (View Protocol) Severe Sepsis Present: No Septic Shock Septic Shock Present: No Miscellaneous Documentation Attending Case Discussed With: CB WING MD Primary Care Physician: CB WING MD Patient sees these Specialists . Level of Patient Care: Telemetry JESSICAAMY 03/17/17 1844: Review of Systems Review of Systems Constitutional: Reports: no symptoms. Resident Review Statement Resident Statement: examined this patient, discussed with jewelry internship, agreed with jewelry internship Other Findings: This is a 66-year-old lady with past medical history significant for pulmonary embolism, CVA, CAD who was brought to the hospital from alf for worsening of agitation. Patient's sister was present at bedside, reports that patient has been having altered mental status for past few days, which is worsening since yesterday. Upon presentation to the ED she was found to be in SVT rate 203. Her heart rate improved to 100s after receiving 5 mg of IV metoprolol in the ED. At the time of our interview, patient is nonverbal, lethargic, moaning, unable to follow commands or answer questions. Opens her eyes spontaneously and moves her upper extremities. Head NCAT, neck supple, cardiovascular: Tachycardic, no murmur, lungs anteriorly auscultated clear, abdomen has normal bowel sounds and is distended. There is no lower extremity edema. She was also found to have a positive UA and leukocytosis to 15.8 for which she was started on IV antibiotics. Available labs and imaging data were reviewed. Assessment/plan: #Sepsis of urological origin: Patient meets SIRS criteria given tachycardia and leukocytosis, source of infection likely UTI. The patient received IV vancomycin and ceftazidime x one dose in the ED. Will start the patient on IV ceftriaxone pending urine cultures. #Altered mental status: Will order a head CT, carotid Doppler, echocardiogram #SVT: Noted on the EKG on admission. Patient responded to 5 IV metoprolol 1. Rating no 100s. Maintain the patient on oil pipe inspector. Will trend troponins and EKGs. Cardiology consult. #Transaminitis: The patient presented with total bilirubin 5.5, AST 376, ALT 233 , alkaline phosphatase 802, abdomen/pelvic CT showed Intrahepatic bile duct dilatation with large low attenuating mass at the jay hepatis suspicious of malignancy. The patient was diagnosed with liver mass and was supposed to follow-up with oncologist mid March. Place oncology and GI consult. #DVT prophylaxis at all times #Patient is DNI DNR
--- NOTE | 2017-03-17 18:45 | NUR ---
HOUSE STAFF AT BEDSIDE FOR EVAL
--- NOTE | 2017-03-17 19:06 | NUR ---
PT HAS BED ASSIGNMENT 184-1. RN NOTIFIED.
--- NOTE | 2017-03-17 19:10 | NUR ---
REPEAT LACTIC OBTAINED AND SENT TO LAB
--- NOTE | 2017-03-17 19:30 | NUR ---
PT MEDICATED WITH MORPHONE 0.5MG IVP
--- NOTE | 2017-03-17 19:37 | NUR ---
REPORT CALLED TO JUS MCKEON
--- NOTE | 2017-03-17 20:22 | Cons- Gastroenterology ---
General Information and HPI Consulting Request Date of Consult: 03/17/17 Requested By: CB MUNIZ MD Reason for Consult: I was called by Dr. Muniz's service < 1 hour ago for a semi-elective a.m. GI consult for evaluation of a "liver mass." I was then called by Dr. Valentin for possible cholangitis. Source of Information: family (pt's sis, Anna Sow) Exam Limitations: unable to give history, not alert/orientated, clinical condition, confusion, medical records at [facility], CVA/SDH History of Present Illness: 66 y/o female, DNR/DNI, non-HTN, non-DM, COPD, with history of cardiac ablation for arrhythmia, ? PAF, history of seizures (remotely on Dilantin, switched to Keppra; off Keppra x 2 months), who initially presented to the [place] ER with RLE DVT & saddle pulmonary embolus by doppler/CTA chest & patient was transferred to [place] then from the [facility]. Unfortunately, almost all of her medical records are at [facility]. According to her sister, Anna Curry, who asisted me tremendously in obtaining a history, the patient was put on Coumadin and Lovenox. This was followed by a LLE DVT, despite having a supratherapeutic INR. She apparently was discharged from [place] on Lovenox, then was readmitted to [facility] x 1 week for cellulitis of the LLE. The patient is left-handed. She was discharged to home, then readmitted to [place] shortly afterwards for a TIA, when she presented with expressive aphasia and a left facial droop. This was followed by a right-sided CVA as an inpatient there, with left hemiparesis and an KS. Sometime around 12/2016, pancreatic Ca vs, cholangio Ca was diagnosed at [facility] by imaging studies/biopsy. I am not certain if this was unresectable at that time. The patient was awaiting further evaluation by [place] oncology. She was aware of this diagnosis. The patient apparently had good cognition until today, 03/17/2017, when she was BIBA from [facility] to the [facility], for agitation & tachycardia, where she arrived at 2:20 p.m. 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 There was no documented head trauma.She had a Arellano in place from the SNF, containing large amounts of orange sediment. Upon arrival, BP 131/76, P ? 190's (SVT on CM), R 16, O2 sat RA 95%, T 102.1. She was given IV NS X 3L, Toprol, Tylenol, Adenocard, Diltiazem, MS, IV Fortaz & IV Vanco by the ER & cultured. The patient was admitted to General Medicine. Imaging studies showed a mass at the jay hepatis with dilated intrahepatic ducts. *The patient was completely disoriented and unable to give any further history. There is no family history of GI malignancy, GI disease, or inherited liver disease. 12/15/2016: Admission labs- WBC 15.8 (80% gran/13 gran Ab), H/H 11.6/36.2, MCV 86.7, RDW 17.5, PLT 424, PT 17.7, INR 1.69, PTT 40, glucose 115, BUN/Cr 19/0.6, GFR > 60, Na 138, K 3.6, HCO3 28, AG 10, lactate 3.1 (2.1), lipase 113, Ca 8.4, albumin 2.9, globulin 3.7, TBil 5.5 (without fracs), alk phos 802, AST 376, ALT 233, NH3 10, CK 85, troponin .06; U/A- turbid orange, 1.025, 6.5, 10-15 RBC, packed WBC, 1+ Ca ox, packed bacteria, tr ketone, large Hgb, + icto, > 300 protein, 4.0 urobil, + nitrite, large esterase. 03/17/2017: BCx 2- pending; UC- pending. 03/17/2017: EKG- ST @ 100, LAHB, RVH, occ unifocal PVC, early transition, NSST inferiorly. 03/17/2017: XR PORTABLE CHEST- Patchy opacity right lower chest which could represent early pneumonia. Emphysema. Thyromegaly. 03/17/2017: CT ABDOMEN AND PELVIS WITH IV CONTRAST- Intrahepatic bile duct dilatation with large 6 x 4 x 5 cm low attenuating mass in the left lobe of the liver at the jay hepatis. Neoplasm suspected. Atrophic pancreas without PD dilitation. No ascites. Arellano catheter in bladder. ASHD of the aorto-iliac vessels without aneurysm. AP not seen. Marked left-sided diverticulosis coli, without diverticulitis. Bibasilar atelectasis. Levoscoliosis of L spine. DJD. 03/17/17: CT HEAD WITHOUT CONTRAST, STROKE PROTOCOL- 1. *Findings concerning for a subacute large right middle cerebral artery infarct with gyriform enhancement versus hemorrhage. 2. *Questionable subdural hematoma versus a mass along the tentorium on the left side. This will also require follow-up imaging. 03/17/2017: MITZY SONO- pending. Allergies/Medications Allergies: Coded Allergies: pseudoephedrine (UNKNOWN PER 03/17/17) Home Med List: Acetaminophen (Pain & Fever) 325 MG TABLET 2 TAB PO Q4H PRN PAIN/TEMP>101 ( Reported) Acetaminophen (Acephen) 650 MG SUPP.RECT 1 SUPP ID Q4H PRN PAIN/TEMP>101 ( Reported) Aspirin (Ecotrin*) 81 MG TABLET.DR 1 TAB PO DAILY PROPHYLAXIS (Reported) Atorvastatin Calcium 80 MG TABLET 1 TAB PO DAILY CHOLESTEROL (Reported) Bisacodyl (Dulcolax) 10 MG SUPP.RECT 1 SUP RC PRN CONSTIPATION (Reported) Bisacodyl (Dulcolax) 5 MG TABLET.DR 1 TAB PO Q24H PRN CONSTIPATION (Reported) Enoxaparin Sodium 100 MG/ML SYRINGE 100 MG SC Q12H PULMONARY EMBOLISM ( Reported) Fluoxetine HCl 20 MG CAPSULE 1 CAP PO DAILY DEPRESSION (Reported) Furosemide (Lasix) 20 MG TABLET 1 TAB PO DAILY CHRONIC A FIB (Reported) Ipratropium/Albuterol Sulfate (Iprat-Albut 0.5-3(2.5) MG/3 Ml) 0.5 MG-3 MG (2.5 MG BASE)/3 ML AMPUL.NEB 3 ML INH Q6H PRN SOB/WHEEZING WHILE AWAKE (Reported) Lactulose 20 GRAM/30 ML SOLUTION 30 ML PO DAILY CONSTIPATION (Reported) Lorazepam 2 MG/ML ORAL.CONC 0.5 MG SL Q4H PRN INCREASED ANXIETY (Reported) Magnesium Hydroxide (Milk Of Magnesia) 400 MG/5 ML ORAL.SUSP 30 ML PO PRN CONSTIPATION (Reported) Magnesium Hydroxide (Milk Of Magnesia) 400 MG/5 ML ORAL.SUSP 30 ML PO PRN CONSTIPATION (Reported) Metoprolol Tartrate 25 MG TABLET 1 TAB PO Q8H CEREBRAL INFARCTION (Reported) Morphine Sulfate 20 MG/5 ML (4 MG/ML) SOLUTION 5 MG SL AD PRN SEVERE PAIN ( Reported) Morphine Sulfate 20 MG/5 ML (4 MG/ML) SOLUTION 5 MG SL Q4H PRN PAIN/RESP>28 ( Reported) Multivitamin (Multi-Day Vitamins) 1 EACH TABLET 1 TAB PO DAILY SUPPLEMENT ( Reported) Na Phos,M-B/Na Phos,Di-Ba (Fleet Enema) 19 GRAM-7 GRAM/118 ML ENEMA 1 E RC PRN CONSTIPATION (Reported) Ondansetron HCl (Zofran) 4 MG TABLET 1 TAB PO Q4H PRN N/V (Reported) Phenytoin Sodium Extended 100 MG CAPSULE 1 CAP PO TID SEIZURES (Reported) Pregabalin (Lyrica) 25 MG CAPSULE 1 CAP PO QHS RLS (Reported) Protein Supplement (Promod) 946 ML LIQUID 30 ML PO BID SUPPLEMENT (Reported) Tramadol HCl 50 MG TABLET 25 MG PO Q6H PRN PAIN (Reported) Warfarin Sodium 5 MG TABLET 1 TAB PO DAILY DVT (Reported) Current Medications: Current Medications Sig/Mil Start time Last Medication Dose Route Stop Time Status Admin Acetaminophen 0 .STK-MED ONE 03/17 1520 DC ID Acetaminophen 650 MG ONCE ONE 03/17 1515 DC 03/17 ID 03/17 1516 1506 Adenosine 6 MG ONCE ONE 03/17 1530 DC IV 03/17 1531 Adenosine 0 .STK-MED ONE 03/17 1514 DC IV Adenosine 0 .STK-MED ONE 03/17 1513 DC IV Ceftazidime 0 .STK-MED ONE 03/17 1635 DC .ROUTE Ceftazidime 1,000 MG ONCE ONE 03/17 1515 DC 03/17 IV 03/17 1516 1635 Ceftriaxone Sodium 1,000 MG DAILY 03/18 1000 AC IV Diltiazem HCl 0 .STK-MED ONE 03/17 1528 DC .ROUTE Lorazepam 0.4 MG Q4P PRN 03/17 2200 AC IV Metoprolol Tartrate 5 MG ONCE ONE 03/17 1500 DC 03/17 IV 03/17 1501 1500 Metoprolol Tartrate 0 .STK-MED ONE 03/17 1455 DC IV Morphine Sulfate 1 MG Q1P PRN 03/17 2200 AC IV Morphine Sulfate 0 .STK-MED ONE 03/17 1919 DC .ROUTE Morphine Sulfate 0.5 MG ONCE ONE 03/17 1915 DC 03/17 IV 03/17 1916 1929 Morphine Sulfate 0 .STK-MED ONE 03/17 1855 DC .ROUTE Morphine Sulfate 2 MG ONCE ONE 03/17 1815 DC IV 03/17 1816 Potassium Chloride 10 MEQ Q1H 03/17 2015 DC IV 03/17 2116 Sodium Chloride 1,000 ML BOLUS ONE 03/17 1515 DC 03/17 IV 03/17 1614 1500 Sodium Chloride 1,000 ML BOLUS ONE 03/17 1515 DC 03/17 IV 03/17 1614 1550 Sodium Chloride 1,000 ML BOLUS ONE 03/17 1500 DC 03/17 IV 03/17 1559 1635 Vancomycin HCl 0 .STK-MED ONE 03/17 1642 DC .ROUTE Vancomycin HCl 1,000 MG ONCE ONE 03/17 1515 DC 03/17 Sodium Chloride 250 ML IV 03/17 1614 1644 Past History Travel History Traveled to [place] past 21 day No Medical History Neurological: SEIZURE STROKE EENT: NONE Cardiovascular: AFIB, FAST HEART RATE Respiratory: COPD, pulmonary embolism (saddle embolus 12/12/16), B/L LE DVT Gastrointestinal: NONE Hepatic: jaundice, abnormal LFTs Renal: NONE Musculoskeletal: NONE Psychiatric: depression Endocrine: thyromegaly Blood Disorders: DVT (B/L LE 11/2016 ), PE (11/2016) Cancer(s): pancreatic cancer (vs. 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 FATHER, , Age 66; Cause: CVA (cerebral vascular accident). Psychosocial History Where Do You Live? Extended Care Facility ([facility]) Who Do You Live With? SNF- previously lived with her sisterRebekah Services at Home: SNF Primary Language: Hong Konger Smoking Status: Former Smoker ETOH Use: denies use Illicit Drug Use: denies illicit drug use Living Will? yes (DNR/DNI) Power of Charter Pilot/HCP? no (was in process) Other Social History: Single. Never . No children. SNF resident at [facility]. Previously lived with sister, Rebekah. Ex-50-pk-yr cigarette smoker, D/C 11/2016, at time of RLE DVT/PE. No EtOH. No illicit drugs. Retired from [employer]. Patient is 1 of 8 kids (2 sis & 5 bros- [employer]). Functional Ability ADLs Needs Assist: dressing (since CVA), eating, toileting, bathing. Ambulation: independent (since CVA), non-ambulatory IADLs Needs Assist: shopping (since CVA), housework, finances, food prep, telephone, transportation, medication admin. Employment History Employment: Retired Profession/Employer: worked for [employer] Review of Systems Review of Systems: Full 14 point ROS unobtainable from patient. Review of Systems All Other Systems: Reviewed and Negative (unobtainable) Exam & Diagnostic Data Vital Signs and I&O Vital Signs Date Time Temp Pulse Resp B/P B/P Pulse O2 O2 Flow FiO2 Mean Ox Delivery Rate 03/17 2100 95 Nasal 2.0L Cannula 03/17 2050 98.5 94 18 108/40 95 Nasal 2.0L Cannula 03/17 1743 99.7 88 18 122/60 96 Room Air 03/17 1700 Nasal 2.0L Cannula 03/17 1615 100.7 03/17 1614 100.7 98 18 123/60 95 Nasal Cannula 03/17 1552 98 16 126/59 94 Nasal Cannula 03/17 1529 98 16 125/60 95 Room Air 03/17 1518 102.1 03/17 1446 131/76 Intake & Output 03/17 1600 03/17 0400 03/16 1600 03/16 0400 03/15 1600 03/15 0400 Intake Total 1000 Output Total Balance 1000 Intake, IV 1000 Patient 167 lb Weight Weight Reported by Patient Measurement Method Physical Exam: Well-developed, slightly malnourished, left handed female, looking older than her stated age, in moderate distress, agitated, unable to converse, with expressive aphasia. Sclera anicteric. Conjunctiva pink. Oropharynx: Dried blood in mouth. Broken front teeth. No definite tongue bite. Dried mucus membranes. No stridor. There is no adenopathy or JVD. Mild thyromegaly. Carotids 1+ B/L. No definite bruit. No peripheral stigmata of inflammatory bowel disease or chronic liver disease on exam. No spiders on the anterior chest wall. Breast & pelvic: API. No CVA tenderness. Lungs: clear to A&P, with slight decreased BS at right base. No wheezing, rales or rhonchi. Heart exam: regular rate rhythm, S1 and S2 , with I/ systolic murmur. Abdominal exam: normal bowel sounds, mildly distended belly, nontender, without guarding or rebound. RUQ fullness. Negative Alarcon sign. Liver approximately 16 cm by percussion. No splenoomegaly. No fluid shift. No pulsatile mass. No epigastric bruit. Digital rectal exam: deferred at present. Extremities: without C, C, or E. No palpable cords. No cellulitis. No palmar erythema. No Dupuytren's contractures. Distal pulses 1+ bilaterally. DTRs 2+ on right. DTR 3+ on left. Motor LUE 0/5, LLE 1-2/5, 5/5 on right, thrashing about RUE. Slightly lethargic. Disoriented x 3. Slightly diminished gag reflex. Uncooperative with CN testing. No tremor. No asterixis. Upgoing plantar LLE, downgoing plantar RLE. Results Pertinent Lab Results: Laboratory Tests 03/17 03/17 03/17 03/17 2135 2135 1600 1600 Chemistry Lactic Acid (0.7 - 2.1 mmol/L) 1.4 2.1 Ammonia (9 - 30 umol/L) 10 Troponin I (< 0.11 ng/ml) 0.29 *H 03/17 03/17 1538 1520 Chemistry Sodium (137 - 145 mmol/L) 138 Potassium (3.5 - 5.1 mmol/L) 3.6 Chloride (98 - 107 mmol/L) 99 Carbon Dioxide (22 - 30 mmol/L) 28 Anion Gap (5 - 16) 10 BUN (7 - 17 mg/dL) 19 H Creatinine (0.5 - 1.0 mg/dL) 0.6 Estimated GFR (>60 ml/min) > 60 BUN/Creatinine Ratio (7 - 25 %) 31.7 H Glucose (65 - 99 mg/dL) 115 H Lactic Acid (0.7 - 2.1 mmol/L) 3.1 H Calcium (8.4 - 10.2 mg/dL) 8.4 Total Bilirubin (0.2 - 1.3 mg/dL) 5.5 H AST (14 - 36 U/L) 376 H ALT (9 - 52 U/L) 233 H Alkaline Phosphatase (<127 U/L) 802 H Creatine Kinase (30 - 135 U/L) 85 Troponin I (< 0.11 ng/ml) 0.06 Total Protein (6.3 - 8.2 g/dL) 6.6 Albumin (3.5 - 5.0 g/dL) 2.9 L Globulin (1.9 - 4.2 gm/dL) 3.7 Albumin/Globulin Ratio (1.1 - 2.2 %) 0.8 L Lipase (23 - 300 U/L) 113 Coagulation PT (9.4 - 12.5 SEC) 17.7 H INR (0.90 - 1.19) 1.69 H APTT (25 - 37 SEC) 40 H Hematology CBC w Diff NO MAN DIFF REQ WBC (4.8 - 10.8 /CUMM) 15.8 H RBC (4.20 - 5.40 /CUMM) 4.18 L Hgb (12.0 - 16.0 G/DL) 11.6 L Hct (37 - 47 %) 36.2 L MCV (81.0 - 99.0 FL) 86.7 MCH (27.0 - 31.0 PG) 27.8 RDW (11.5 - 14.5 %) 17.5 H Plt Count (130 - 400 /CUMM) 424 H MPV (7.4 - 10.4 FL) 7.8 Gran % (42.2 - 75.2 %) 79.6 H Lymphocytes % (20.5 - 51.1 %) 12.7 L Monocytes % (1.7 - 9.3 %) 7.1 Eosinophils % (0 - 5 %) 0.3 Basophils % (0.0 - 2.0 %) 0.3 Absolute Granulocytes (1.4 - 6.5 /CUMM) 12.6 H Absolute Lymphocytes (1.2 - 3.4 /CUMM) 2.0 Absolute Monocytes (0.10 - 0.60 /CUMM) 1.1 H Absolute Eosinophils (0.0 - 0.7 /CUMM) 0.1 Absolute Basophils (0.0 - 0.2 /CUMM) 0.1 PUBS MCHC (33.0 - 37.0 G/DL) 32.0 L Urines Urine Color (YEL,AMB,STR) ORANG H Urine Clarity (CLEAR) TURBD H Urine pH (5.0 - 8.0) 6.5 Ur Specific [place] (1.001 - 1.035) 1.025 Urine Protein (NEG,<30 MG/DL) >=300 H Urine Ketones (NEG) TRACE H Urine Nitrite (NEG) POS H Urine Bilirubin (NEG) POS@ICTO H Urine Urobilinogen (0.1 - 1.0 EU/dl) 4.0 H Ur Leukocyte Esterase (NEG) LARGE H Ur Microscopic SEDIMENT EXAMINED Urine RBC (0 - 5 /HPF) 10-15 H Urine WBC (0 - 2 /HPF) PACKD H Urine Crystals 1+ CA OX H Urine Bacteria (NEG/NONE) PACKD H Urine Hemoglobin (NEG) LARGE H Urine Glucose (N MG/DL) NEG Imaging/Other Studies: 03/17/2017: EKG- ST @ 100, LAHB, RVH, occ unifocal PVC, early transition, NSST inferiorly. 03/17/2017: XR PORTABLE CHEST- Patchy opacity right lower chest which could represent early pneumonia. Emphysema. Thyromegaly. 03/17/2017: CT ABDOMEN AND PELVIS WITH IV CONTRAST- Intrahepatic bile duct dilatation with large 6 x 4 x 5 cm low attenuating mass in the left lobe of the liver at the jay hepatis. Neoplasm suspected. Atrophic pancreas without PD dilitation. No ascites. Arellano catheter in bladder. ASHD of the aorto-iliac vessels without aneurysm. AP not seen. Marked left-sided diverticulosis coli, without diverticulitis. Bibasilar atelectasis. Levoscoliosis of L spine. DJD. 03/17/17: CT HEAD WITHOUT CONTRAST, STROKE PROTOCOL- 1. *Findings concerning for a subacute large right middle cerebral artery infarct with gyriform enhancement versus hemorrhage. 2. *Questionable subdural hematoma versus a mass along the tentorium on the left side. This will also require follow-up imaging. 03/17/2017: MITZY SONO- pending. Assessment/Plan Assessment/Recommendations: 66 y/o female, DNR/DNI, non-HTN, non-DM, COPD, with history of cardiac ablation for arrhythmia, ? PAF, history of seizures (remotely on Dilantin, switched to Keppra; off Keppra x 2 months), who initially presented to the [place] ER with RLE DVT & saddle pulmonary embolus by doppler/CTA chest & patient was transferred to [place] then from the [place] ER. Unfortunately, almost all of her medical records are at [facility]. According to her sister, Anna Curry, who asisted me tremendously in obtaining a history, the patient was put on Coumadin and Lovenox. This was followed by a LLE DVT, despite having a supratherapeutic INR. She apparently was discharged from [place] on Lovenox, then was readmitted to [facility] x 1 week for cellulitis of the LLE. The patient is left-handed. She was discharged to home, then readmitted to [place] shortly afterwards for a TIA, when she presented with expressive aphasia and a left facial droop. This was followed by a right-sided CVA as an inpatient there, with left hemiparesis and an KS. Sometime around 12/2016, pancreatic Ca vs, cholangio Ca was diagnosed at [facility] by imaging studies/biopsy. I am not certain if this was unresectable at that time. The patient was awaiting further evaluation by [place] oncology. She was aware of this diagnosis. The patient apparently had good cognition until today, 03/17/2017, when she was BIBA from [facility] to the [facility], for agitation & tachycardia, where she arrived at 2:20 p.m. 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 There was no documented head trauma.She had a Arellano in place from the SNF, containing large amounts of orange sediment. Upon arrival, BP 131/76, P ? 190's (SVT on CM), R 16, O2 sat RA 95%, T 102.1. She was given IV NS X 3L, Toprol, Tylenol, Adenocard, Diltiazem, MS, IV Fortaz & IV Vanco by the ER & cultured. The patient was admitted to General Medicine. Imaging studies showed a mass at the jay hepatis with dilated intrahepatic ducts. *The patient was completely disoriented and unable to give any further history. There is no family history of GI malignancy, GI disease, or inherited liver disease. 12/15/2016: Admission labs- WBC 15.8 (80% gran/13 gran Ab), H/H 11.6/36.2, MCV 86.7, RDW 17.5, PLT 424, PT 17.7, INR 1.69, PTT 40, glucose 115, BUN/Cr 19/0.6, GFR > 60, Na 138, K 3.6, HCO3 28, AG 10, lactate 3.1 (2.1), lipase 113, Ca 8.4, albumin 2.9, globulin 3.7, TBil 5.5 (without fracs), alk phos 802, AST 376, ALT 233, NH3 10, CK 85, troponin .06; U/A- turbid orange, 1.025, 6.5, 10-15 RBC, packed WBC, 1+ Ca ox, packed bacteria, tr ketone, large Hgb, + icto, > 300 protein, 4.0 urobil, + nitrite, large esterase. 03/17/2017: BCx 2- pending; UC- pending. 03/17/2017: EKG- ST @ 100, LAHB, RVH, occ unifocal PVC, early transition, NSST inferiorly. 03/17/2017: XR PORTABLE CHEST- Patchy opacity right lower chest which could represent early pneumonia. Emphysema. Thyromegaly. 03/17/2017: CT ABDOMEN AND PELVIS WITH IV CONTRAST- Intrahepatic bile duct dilatation with large 6 x 4 x 5 cm low attenuating mass in the left lobe of the liver at the jay hepatis. Neoplasm suspected. Atrophic pancreas without PD dilitation. No ascites. Arellano catheter in bladder. ASHD of the aorto-iliac vessels without aneurysm. AP not seen. Marked left-sided diverticulosis coli, without diverticulitis. Bibasilar atelectasis. Levoscoliosis of L spine. DJD. 03/17/17: CT HEAD WITHOUT CONTRAST, STROKE PROTOCOL- 1. *Findings concerning for a subacute large right middle cerebral artery infarct with gyriform enhancement versus hemorrhage. 2. *Questionable subdural hematoma versus a mass along the tentorium on the left side. This will also require follow-up imaging. 03/17/2017: MITZY SONO- pending. *The patient has numerous comorbidities, with apparent underlying pancreatic Ca vs. cholangio Ca (records at [facility]), presenting from rehab center today with agitation, change in mental status, fever, leukocytosis, elevated LFTs, dilated intrahepatic ducts with mass at jay hepatis, & UTI. In retrospect, her migratory thrombophlebitis (RLE DVT/PE/LLE DVT), was probably from the underlying neoplasm. One cannot definitively rule out cholangitis. The above is in the setting of a subacute large right MCA infarct with questionable associated hemorrhage, as well as left-sided subdural hematoma. 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 The patient has a living will & is DNR/DNI. I had a long discussion with the patient's sister, Anna Sow, at the bedside, as did the medical housestaff. If one were to be aggressive (apparently there is no neurosurgical coverage at [place] this p.m., as per the medical housestaff's discussion with Dr. Vasquez), this would require transfer to [facility] ICU for potential neurosurgical intervention, as well as broad-spectrum antibiotics to cover her biliary tree, urinary tract, & lungs (she was given IV Vancomycin and Fortaz in the ER). At the moment, she is too unstable for ERCP. An alternative could be percutaneous biliary drainage by IR, depending on the level of aggressiveness desired. I am not certain if her pancreatic Ca vs. cholangio Ca was resectable upon presentation in 12/2016, but she is certainly not a surgical candidate at this point. The patient's sister, Anna Sow, decided to make the patient comfort care, after weighing all the options. Therefore, she will stay on General Medicine & I will sign off from a GI perspective. The patient's sister, Anna Sow, was given my office number, should she have any additional questions. Problem List: 1. Pancreatic cancer 2. Cholangitis 3. Elevated LFTs 4. UTI (urinary tract infection) 5. CVA (cerebral vascular accident) 6. SDH (subdural hematoma) 7. SVT (supraventricular tachycardia) Copies To: CB MUNIZ MD Acknowledgment - Thank you for your consult request.
[2017-03-17 20:50] VITALS: BP 108/40
--- NOTE | 2017-03-17 20:51 | Admission Certification ---
Admission Certification Certification Statement - As attending physician, I certify that at the time of - admission, based on clinical presentation, severity of - symptoms, need for further diagnostic testing and - therapeutic interventions, and risk of adverse outcomes - without in-hospital treatment, in my clinical assessment, - this patient requires an acute hospital stay for a minimum - of two nights or longer. I have also considered psychsocial - factors such as support system, advanced age, financial - issues, cognitive issues, and failed out-patient treatments, - past re-admission history, safety of patient, and lack of - compliance as applicable. Specific rationale supporting this admission is: Rapid heartbeat in a supraventricular tachycardia then atrial fibrillation and and normal sinus rhythm. Fever dirty urine a recent diagnosis of a liver mass consistent with cancer, recent stroke
--- NOTE | 2017-03-17 20:54 | Event Note ---
Event Note Event Note: At 8.30 pm, I got a call from [facility] radiology for CT head scan findings. Patient had right MCA territory evolving stroke, subacute in nature and she also had subdural hematoma along tentorial region on left. The case was discussed with supervisor inspection and testing neurologist Dr. Nye. We will monitor her in ICU with frequent neuro checks. No acute change in management for now. Will get carotid doppler b/l and Echocardiogram. Attending Dr. Schwartz aware. Patient will be signed out to the ICU team.
--- NOTE | 2017-03-17 21:01 | CT SCAN REPORT ---
EXAMINATION: CT HEAD WITHOUT CONTRAST, STROKE PROTOCOL CLINICAL INFORMATION: Altered mental status. COMPARISON: None on record. TECHNIQUE: Contiguous axial imaging was performed from the skull base to vertex without intravenous administration of contrast, at the time of Exam is of limited diagnostic quality due to motion artifact. DLP: 432 mGy-cm FINDINGS: There is a fairly diffuse decrease in attenuation throughout the right MCA territory with gyriform hyperdensity likely gyriform enhancement on these images performed after the contrast-enhanced CT performed earlier the same day. Findings less likely represent hemorrhage, however this is not excluded. Additionally, there is concerning for an extra-axial asymmetric hyperdensity identified along the tentorium on the left side some which may be artifact due to motion, however given the asymmetry and underlying for which a subdural hematoma is suggested. An underlying mass in this region is not entirely excluded. Follow-up imaging of this abnormality is also recommended. No abnormal mass effect or midline shift is seen. The ventricles are normal in size. The osseous structures and soft tissues are normal. The mastoid air cells and visualized portions of the paranasal sinuses are well aerated. IMPRESSION: 1. Findings concerning for a subacute large right middle cerebral artery infarct with gyriform enhancement versus hemorrhage. 2. Questionable subdural hematoma versus a mass along the tentorium on the left side. This will also require follow-up imaging. Critical result: Right MCA territorial subacute infarct with questionable associated hemorrhage versus enhancement was discussed with Dr. Anderson at 2045 hours on 03/17/2017. In addition, findings in regards to the suspected left-sided subdural hematoma were discussed at 2100 hours. It was ascertained that the content and urgency of the report was understood at the time of direct communication.
--- NOTE | 2017-03-17 21:06 | PN- Att Addend ---
Attending Addendum Attending Brief Note 66-year-old single white female was at [facility] for short-term rehabilitation, she had a recent stroke also recent diagnosis of a liver mass and the biopsy is positive for cancer and has been weak trying to do some therapy. Yesterday persisted patient was talking to her today the patient became very agitated and was found to have low blood pressure in the very fast heart rate was sent to the emergency room which seems to be first in supraventricular tachycardia patient was medicated than the rate slowed down but was in atrial fibrillation later on she reverted to normal sinus rhythm and her agitation diminished. Patient is still less responsive seems to be in pain . Her urine also looked dirty, already was on an antibiotic for urinary tract infection. Had a fever. Patient is a DNR but will admit to telemetry to monitor her heart rate get a cardiology consultation. All cultures were obtained. Antibiotics were given, her first lactic acid was slightly elevated. Also have GI input and if necessary neurology input. With all the comorbidities. Family might consider hospice comfort care Laboratory Tests 03/17 03/17 03/17 1600 1600 1538 Chemistry Lactic Acid (0.7 - 2.1 mmol/L) 2.1 Ammonia (9 - 30 umol/L) 10 Urines Urine Color (YEL,AMB,STR) ORANG H Urine Clarity (CLEAR) TURBD H Urine pH (5.0 - 8.0) 6.5 Ur Specific [place] (1.001 - 1.035) 1.025 Urine Protein (NEG,<30 MG/DL) >=300 H Urine Ketones (NEG) TRACE H Urine Nitrite (NEG) POS H Urine Bilirubin (NEG) POS@ICTO H Urine Urobilinogen (0.1 - 1.0 EU/dl) 4.0 H Ur Leukocyte Esterase (NEG) LARGE H Ur Microscopic SEDIMENT EXAMINED Urine RBC (0 - 5 /HPF) 10-15 H Urine WBC (0 - 2 /HPF) PACKD H Urine Crystals 1+ CA OX H Urine Bacteria (NEG/NONE) PACKD H Urine Hemoglobin (NEG) LARGE H Urine Glucose (N MG/DL) NEG 03/17 1520 Chemistry Sodium (137 - 145 mmol/L) 138 Potassium (3.5 - 5.1 mmol/L) 3.6 Chloride (98 - 107 mmol/L) 99 Carbon Dioxide (22 - 30 mmol/L) 28 Anion Gap (5 - 16) 10 BUN (7 - 17 mg/dL) 19 H Creatinine (0.5 - 1.0 mg/dL) 0.6 Estimated GFR (>60 ml/min) > 60 BUN/Creatinine Ratio (7 - 25 %) 31.7 H Glucose (65 - 99 mg/dL) 115 H Lactic Acid (0.7 - 2.1 mmol/L) 3.1 H Calcium (8.4 - 10.2 mg/dL) 8.4 Total Bilirubin (0.2 - 1.3 mg/dL) 5.5 H AST (14 - 36 U/L) 376 H ALT (9 - 52 U/L) 233 H Alkaline Phosphatase (<127 U/L) 802 H Creatine Kinase (30 - 135 U/L) 85 Troponin I (< 0.11 ng/ml) 0.06 Total Protein (6.3 - 8.2 g/dL) 6.6 Albumin (3.5 - 5.0 g/dL) 2.9 L Globulin (1.9 - 4.2 gm/dL) 3.7 Albumin/Globulin Ratio (1.1 - 2.2 %) 0.8 L Lipase (23 - 300 U/L) 113 Coagulation PT (9.4 - 12.5 SEC) 17.7 H INR (0.90 - 1.19) 1.69 H APTT (25 - 37 SEC) 40 H Hematology CBC w Diff NO MAN DIFF REQ WBC (4.8 - 10.8 /CUMM) 15.8 H RBC (4.20 - 5.40 /CUMM) 4.18 L Hgb (12.0 - 16.0 G/DL) 11.6 L Hct (37 - 47 %) 36.2 L MCV (81.0 - 99.0 FL) 86.7 MCH (27.0 - 31.0 PG) 27.8 RDW (11.5 - 14.5 %) 17.5 H Plt Count (130 - 400 /CUMM) 424 H MPV (7.4 - 10.4 FL) 7.8 Gran % (42.2 - 75.2 %) 79.6 H Lymphocytes % (20.5 - 51.1 %) 12.7 L Monocytes % (1.7 - 9.3 %) 7.1 Eosinophils % (0 - 5 %) 0.3 Basophils % (0.0 - 2.0 %) 0.3 Absolute Granulocytes (1.4 - 6.5 /CUMM) 12.6 H Absolute Lymphocytes (1.2 - 3.4 /CUMM) 2.0 Absolute Monocytes (0.10 - 0.60 /CUMM) 1.1 H Absolute Eosinophils (0.0 - 0.7 /CUMM) 0.1 Absolute Basophils (0.0 - 0.2 /CUMM) 0.1 PUBS MCHC (33.0 - 37.0 G/DL) 32.0 L Patient also had CAT scans of the abdomen and head.
--- NOTE | 2017-03-17 22:03 | Event Note ---
Event Note Event Note: CT head findings of subacute large right MCA infarct with questionable associated hemorrhage along with suspected left sided subdural hematoma relayed to patient's sister who is currently making decisions regarding Lety Chan's care while she is encephalopathic. Discussion regarding CT findings in combination with liver mass and possible cholangitis occurred. Sister called family and decided that patient will be switched from DNR/DNI to COMFORT MEASURES ONLY. Sister does not want any neurosurgical consult, intubation or ERCP and is not amenable to any possible IR guided biliary decompression. Sister does not want transfer to another institution. Attending physician Dr. Flavio MD was called by resident physician regarding update. Dr. Lokesh MD also present for most of family discussion. Antibiotics will continue for now. All of above discussed with resident physican Dr. Justin MD. of note, patient tachycardic prior to discontinuation of telemetry monitors. Will continue with discontinuation and as patient is asymptomatic will not provide adenosine or rate control medications (this has been discussed with night atttending Dr. Rohan MD). Patient will be transferred to the general medicine floor and hospice eval will be obtained in AM. Will make AM team aware of overnight events.
--- NOTE | 2017-03-18 08:15 | ULTRASOUND REPORT ---
EXAMINATION: DUPLEX BILATERAL CAROTID ULTRASOUND CLINICAL INFORMATION: Stroke. COMPARISON: None. TECHNIQUE: Duplex bilateral carotid US was performed using real-time ultrasound and Doppler techniques (integrating B-mode 2D vascular images, Doppler spectral analysis and color flow Doppler imaging). These techniques were utilized to interrogate the extracranial carotid and vertebral arteries bilaterally. The degree of stenosis is based off criteria similar to NASCET. Limited exam secondary to patient confusion/disorientation. The exam was performed portably, unable to complete the examination of the left carotid system. FINDINGS: 1. On the right: Plaque is present at the carotid bifurcation but velocity measurements are normal and do not suggest a stenosis of greater than 50% diameter reduction in the right ICA. The vertebral artery is patent demonstrating antegrade flow. 2. On the left: Unable to complete exam on the left due to patient noncompliance. The right external carotid arteries appear unremarkable. IMPRESSION: Plaque is present in the right internal carotid arteries but velocity measurements are normal and there is no evidence to suggest a hemodynamically significant stenosis of greater than 50% diameter reduction. Unable to complete examination of the left carotid arterial system due to patient noncompliance.
[2017-03-18 08:25] VITALS: BP 146/58
--- NOTE | 2017-03-18 11:02 | Cons- Neurology ---
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 In January she also suffered a large right MCA stroke that left her hemiplegic on the left side. He was seen for this and he'll and was told she cannot be on anticoagulation as there was evidence of bleeding within the stroke. She currently presents to [facility] due to a change in mental status and is found to have a UTI and a new left tentorial subdural hemorrhage. She is also in on a pain due to her cancer. Recently had the liver lesion biopsied at [place] results are still unknown. Per her niece they are considering comfort measures. In the hospital she continues to be in rapid atrial fibrillation which likely caused the initial stroke. Allergies/Medications Allergies: Coded Allergies: pseudoephedrine (UNKNOWN PER 03/17/17) Home Med List: Acetaminophen (Pain & Fever) 325 MG TABLET 2 TAB PO Q4H PRN PAIN/TEMP>101 ( Reported) Acetaminophen (Acephen) 650 MG SUPP.RECT 1 SUPP CA Q4H PRN PAIN/TEMP>101 ( Reported) Aspirin (Ecotrin*) 81 MG TABLET. 1 TAB PO DAILY PROPHYLAXIS (Reported) Atorvastatin Calcium 80 MG TABLET 1 TAB PO DAILY CHOLESTEROL (Reported) Bisacodyl (Dulcolax) 10 MG SUPP.RECT 1 SUP RC PRN CONSTIPATION (Reported) Bisacodyl (Dulcolax) 5 MG TABLET.DR 1 TAB PO Q24H PRN CONSTIPATION (Reported) Enoxaparin Sodium 100 MG/ML SYRINGE 100 MG SC Q12H PULMONARY EMBOLISM ( Reported) Fluoxetine HCl 20 MG CAPSULE 1 CAP PO DAILY DEPRESSION (Reported) Furosemide (Lasix) 20 MG TABLET 1 TAB PO DAILY CHRONIC A FIB (Reported) Ipratropium/Albuterol Sulfate (Iprat-Albut 0.5-3(2.5) MG/3 Ml) 0.5 MG-3 MG (2.5 MG BASE)/3 ML AMPUL.NEB 3 ML INH Q6H PRN SOB/WHEEZING WHILE AWAKE (Reported) Lactulose 20 GRAM/30 ML SOLUTION 30 ML PO DAILY CONSTIPATION (Reported) Lorazepam 2 MG/ML ORAL.CONC 0.5 MG SL Q4H PRN INCREASED ANXIETY (Reported) Magnesium Hydroxide (Milk Of Magnesia) 400 MG/5 ML ORAL.SUSP 30 ML PO PRN CONSTIPATION (Reported) Magnesium Hydroxide (Milk Of Magnesia) 400 MG/5 ML ORAL.SUSP 30 ML PO PRN CONSTIPATION (Reported) Metoprolol Tartrate 25 MG TABLET 1 TAB PO Q8H CEREBRAL INFARCTION (Reported) Morphine Sulfate 20 MG/5 ML (4 MG/ML) SOLUTION 5 MG SL AD PRN SEVERE PAIN ( Reported) Morphine Sulfate 20 MG/5 ML (4 MG/ML) SOLUTION 5 MG SL Q4H PRN PAIN/RESP>28 ( Reported) Multivitamin (Multi-Day Vitamins) 1 EACH TABLET 1 TAB PO DAILY SUPPLEMENT ( Reported) Na Phos,M-B/Na Phos,Di-Ba (Fleet Enema) 19 GRAM-7 GRAM/118 ML ENEMA 1 E RC PRN CONSTIPATION (Reported) Ondansetron HCl (Zofran) 4 MG TABLET 1 TAB PO Q4H PRN N/V (Reported) Phenytoin Sodium Extended 100 MG CAPSULE 1 CAP PO TID SEIZURES (Reported) Pregabalin (Lyrica) 25 MG CAPSULE 1 CAP PO QHS RLS (Reported) Protein Supplement (Promod) 946 ML LIQUID 30 ML PO BID SUPPLEMENT (Reported) Tramadol HCl 50 MG TABLET 25 MG PO Q6H PRN PAIN (Reported) Warfarin Sodium 5 MG TABLET 1 TAB PO DAILY DVT (Reported) Current Medications: Current Medications Sig/Mil Start time Last Medication Dose Route Stop Time Status Admin Acetaminophen 0 .STK-MED ONE 03/17 1520 DC CA Acetaminophen 650 MG ONCE ONE 03/17 1515 DC 03/17 CA 03/17 1516 1506 Adenosine 6 MG ONCE ONE 03/17 1530 DC IV 03/17 1531 Adenosine 0 .STK-MED ONE 03/17 1514 DC IV Adenosine 0 .STK-MED ONE 03/17 1513 DC IV Ceftazidime 0 .STK-MED ONE 03/17 1635 DC .ROUTE Ceftazidime 1,000 MG ONCE ONE 03/17 1515 DC 03/17 IV 03/17 1516 1635 Ceftriaxone Sodium 1,000 MG DAILY 03/18 1000 AC 03/18 IV 0807 Diltiazem HCl 0 .STK-MED ONE 03/17 1528 DC .ROUTE Lorazepam 0.4 MG Q4P PRN 03/17 2200 AC 03/18 IV 0846 Metoprolol Tartrate 5 MG ONCE ONE 03/17 1500 DC 03/17 IV 03/17 1501 1500 Metoprolol Tartrate 0 .STK-MED ONE 03/17 1455 DC IV Morphine Sulfate 1 MG ONCE ONE 03/18 1030 DC 03/18 IV 03/18 1031 1032 Morphine Sulfate 2 MG Q1 NEEDED PRN 03/18 1030 AC IV Morphine Sulfate 1 MG Q1P PRN 03/17 2200 DC 03/18 IV 0952 Morphine Sulfate 0 .STK-MED ONE 03/17 1919 DC .ROUTE Morphine Sulfate 0.5 MG ONCE ONE 03/17 1915 DC 03/17 IV 03/17 1916 1929 Morphine Sulfate 0 .STK-MED ONE 03/17 1855 DC .ROUTE Morphine Sulfate 2 MG ONCE ONE 03/17 1815 DC IV 03/17 1816 Potassium Chloride 10 MEQ Q1H 03/17 2015 DC IV 03/17 2116 Sodium Chloride 1,000 ML BOLUS ONE 03/17 1515 DC 03/17 IV 03/17 1614 1500 Sodium Chloride 1,000 ML BOLUS ONE 03/17 1515 DC 03/17 IV 03/17 1614 1550 Sodium Chloride 1,000 ML BOLUS ONE 03/17 1500 DC 03/17 IV 03/17 1559 1635 Vancomycin HCl 0 .STK-MED ONE 03/17 1642 DC .ROUTE Vancomycin HCl 1,000 MG ONCE ONE 03/17 1515 DC 03/17 Sodium Chloride 250 ML IV 03/17 1614 1644 Review of Systems Review of Systems: As per HPI otherwise negative to the 10 point complete review of system Past History Travel History Traveled to [place] past 21 day No Medical History Blood Transfusion Hx: No Neurological: SEIZURE STROKE EENT: NONE Cardiovascular: AFIB, FAST HEART RATE Respiratory: COPD, pulmonary embolism (saddle embolus 12/12/16), B/L LE DVT Gastrointestinal: NONE Hepatic: jaundice, abnormal LFTs Renal: NONE Musculoskeletal: NONE Psychiatric: depression Endocrine: thyromegaly Blood Disorders: DVT (B/L LE 11/2016 ), PE (11/2016) Cancer(s): pancreatic cancer (vs. 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 FATHER, , Age 66; Cause: CVA (cerebral vascular accident). Psychosocial History Where Do You Live? Extended Care Facility ([facility]) Who Do You Live With? SNF- previously lived with her sisterRebekah Services at Home: SNF Primary Language: [place] Smoking Status: Former Smoker ETOH Use: denies use Illicit Drug Use: denies illicit drug use Living Will? yes (DNR/DNI) Power of Script Coordinator/HCP? no (was in process) Other Social History: Single. Never . No children. SNF resident at [facility]. Previously lived with sisterRebekah. Ex-50-pk-yr cigarette smoker, D/C 11/2016, at time of RLE DVT/PE. No EtOH. No illicit drugs. Retired from [employer]. Patient is 1 of 8 kids (2 sis & 5 bros- [employer]). Functional Ability ADLs Needs Assist: dressing (since CVA), eating, toileting, bathing. Ambulation: independent (since CVA), non-ambulatory IADLs Needs Assist: shopping (since CVA), housework, finances, food prep, telephone, transportation, medication admin. Employment History Employment: Retired Profession/Employer: worked for [employer] Exam & Diagnostic Data Vital Signs and I&O Vital Signs Date Time Temp Pulse Resp B/P B/P Pulse O2 O2 Flow FiO2 Mean Ox Delivery Rate 03/18 0825 97.9 108 18 146/58 98 Nasal 2.0L Cannula 03/18 0800 Nasal 2.0L Cannula 03/18 0000 Nasal 2.0L Cannula 03/17 2100 95 Nasal 2.0L Cannula 03/17 2050 98.5 94 18 108/40 95 Nasal 2.0L Cannula 03/17 1743 99.7 88 18 122/60 96 Room Air 03/17 1700 Nasal 2.0L Cannula 03/17 1615 100.7 03/17 1614 100.7 98 18 123/60 95 Nasal Cannula 03/17 1552 98 16 126/59 94 Nasal Cannula 03/17 1529 98 16 125/60 95 Room Air 03/17 1518 102.1 03/17 1446 131/76 Intake & Output 03/18 1600 03/18 0800 03/18 0000 Intake Total 0 Output Total 350 400 Balance -350 -400 Intake, Oral 0 Number 0 Bowel Movements Output, Urine 350 400 Patient 167 lb Weight Weight Reported by Patient Measurement Method Physical Exam: Exam is very limited due to the patient's condition. She is very hypersomnolent moaning in pain. She has significant left hemiplegia. Otherwise rest of the exam cannot be completed. Last 48 Hours of Lab Results: Laboratory Tests 03/17 03/17 03/17 03/17 2135 2135 1600 1600 Chemistry Lactic Acid (0.7 - 2.1 mmol/L) 1.4 2.1 Ammonia (9 - 30 umol/L) 10 Troponin I (< 0.11 ng/ml) 0.29 *H 03/17 03/17 1538 1520 Chemistry Sodium (137 - 145 mmol/L) 138 Potassium (3.5 - 5.1 mmol/L) 3.6 Chloride (98 - 107 mmol/L) 99 Carbon Dioxide (22 - 30 mmol/L) 28 Anion Gap (5 - 16) 10 BUN (7 - 17 mg/dL) 19 H Creatinine (0.5 - 1.0 mg/dL) 0.6 Estimated GFR (>60 ml/min) > 60 BUN/Creatinine Ratio (7 - 25 %) 31.7 H Glucose (65 - 99 mg/dL) 115 H Lactic Acid (0.7 - 2.1 mmol/L) 3.1 H Calcium (8.4 - 10.2 mg/dL) 8.4 Total Bilirubin (0.2 - 1.3 mg/dL) 5.5 H AST (14 - 36 U/L) 376 H ALT (9 - 52 U/L) 233 H Alkaline Phosphatase (<127 U/L) 802 H Creatine Kinase (30 - 135 U/L) 85 Troponin I (< 0.11 ng/ml) 0.06 Total Protein (6.3 - 8.2 g/dL) 6.6 Albumin (3.5 - 5.0 g/dL) 2.9 L Globulin (1.9 - 4.2 gm/dL) 3.7 Albumin/Globulin Ratio (1.1 - 2.2 %) 0.8 L Lipase (23 - 300 U/L) 113 Coagulation PT (9.4 - 12.5 SEC) 17.7 H INR (0.90 - 1.19) 1.69 H APTT (25 - 37 SEC) 40 H Hematology CBC w Diff NO MAN DIFF REQ WBC (4.8 - 10.8 /CUMM) 15.8 H RBC (4.20 - 5.40 /CUMM) 4.18 L Hgb (12.0 - 16.0 G/DL) 11.6 L Hct (37 - 47 %) 36.2 L MCV (81.0 - 99.0 FL) 86.7 MCH (27.0 - 31.0 PG) 27.8 RDW (11.5 - 14.5 %) 17.5 H Plt Count (130 - 400 /CUMM) 424 H MPV (7.4 - 10.4 FL) 7.8 Gran % (42.2 - 75.2 %) 79.6 H Lymphocytes % (20.5 - 51.1 %) 12.7 L Monocytes % (1.7 - 9.3 %) 7.1 Eosinophils % (0 - 5 %) 0.3 Basophils % (0.0 - 2.0 %) 0.3 Absolute Granulocytes (1.4 - 6.5 /CUMM) 12.6 H Absolute Lymphocytes (1.2 - 3.4 /CUMM) 2.0 Absolute Monocytes (0.10 - 0.60 /CUMM) 1.1 H Absolute Eosinophils (0.0 - 0.7 /CUMM) 0.1 Absolute Basophils (0.0 - 0.2 /CUMM) 0.1 PUBS MCHC (33.0 - 37.0 G/DL) 32.0 L Urines Urine Color (YEL,AMB,STR) ORANG H Urine Clarity (CLEAR) TURBD H Urine pH (5.0 - 8.0) 6.5 Ur Specific [place] (1.001 - 1.035) 1.025 Urine Protein (NEG,<30 MG/DL) >=300 H Urine Ketones (NEG) TRACE H Urine Nitrite (NEG) POS H Urine Bilirubin (NEG) POS@ICTO H Urine Urobilinogen (0.1 - 1.0 EU/dl) 4.0 H Ur Leukocyte Esterase (NEG) LARGE H Ur Microscopic SEDIMENT EXAMINED Urine RBC (0 - 5 /HPF) 10-15 H Urine WBC (0 - 2 /HPF) PACKD H Urine Crystals 1+ CA OX H Urine Bacteria (NEG/NONE) PACKD H Urine Hemoglobin (NEG) LARGE H Urine Glucose (N MG/DL) NEG Imaging/Other Studies: MRI brain>>> IMPRESSION: 1. Findings concerning for a subacute large right middle cerebral artery infarct with gyriform enhancement versus hemorrhage. 2. Questionable subdural hematoma versus a mass along the tentorium on the left side. This will also require follow-up imaging. Assessment/Plan Assessment: 66-year-old unfortunate woman with evidence of metastatic cancer, uncontrolled atrial fibrillation, subacute right MCA stroke with hemorrhagic conversion, possible subdural hemorrhage and on top of that a UTI. Recommendations: Scuffs the situation of the niece who agrees that comfort measures would be the best way to go in this case since the prognosis is poor to the disseminated cancer. Focus efforts with hospice to control the patient's pain and treat the UTI with antibiotics. If family interested could obtain an MRI with contrast to assess the subdural lesion that further imaging at also be a mass such as a metastases. Consider an EEG to rule out any seizure activity. Consult Acknowledgment - Thank you for your consult request.
--- NOTE | 2017-03-18 13:46 | PN- Housestaff ---
Subjective Follow-up For: CVA Sepsis likely secondary to UTI Altered mental status/agitation SVT Elevated liver enzymes Subjective: Patient seen and examined, lying in bed in mild distress, last night patient was made comfort care. Review of Systems Constitutional: Reports: see HPI. Objective Last 24 Hrs of Vital Signs/I&O Vital Signs Date Time Temp Pulse Resp B/P B/P Pulse O2 O2 Flow FiO2 Mean Ox Delivery Rate 03/18 0825 97.9 108 18 146/58 98 Nasal 2.0L Cannula 03/18 0800 Nasal 2.0L Cannula 03/18 0000 Nasal 2.0L Cannula 03/17 2100 95 Nasal 2.0L Cannula 03/17 2050 98.5 94 18 108/40 95 Nasal 2.0L Cannula 03/17 1743 99.7 88 18 122/60 96 Room Air 03/17 1700 Nasal 2.0L Cannula 03/17 1615 100.7 03/17 1614 100.7 98 18 123/60 95 Nasal Cannula 03/17 1552 98 16 126/59 94 Nasal Cannula 03/17 1529 98 16 125/60 95 Room Air 03/17 1518 102.1 03/17 1446 131/76 Intake & Output 03/18 1600 03/18 0800 03/18 0000 Intake Total 0 0 Output Total 250 350 400 Balance -250 -350 -400 Intake, Oral 0 0 Number 0 Bowel Movements Output, Urine 250 350 400 Patient 75.75 kg Weight Weight Reported by Patient Measurement Method Physical Exam General Appearance: Mild Distress Current Medications: Current Medications Sig/Mil Start time Last Medication Dose Route Stop Time Status Admin Acetaminophen 0 .STK-MED ONE 03/17 1520 DC DE Acetaminophen 650 MG ONCE ONE 03/17 1515 DC 03/17 DE 03/17 1516 1506 Adenosine 6 MG ONCE ONE 03/17 1530 DC IV 03/17 1531 Adenosine 0 .STK-MED ONE 03/17 1514 DC IV Adenosine 0 .STK-MED ONE 03/17 1513 DC IV Ceftazidime 0 .STK-MED ONE 03/17 1635 DC .ROUTE Ceftazidime 1,000 MG ONCE ONE 03/17 1515 DC 03/17 IV 03/17 1516 1635 Ceftriaxone Sodium 1,000 MG DAILY 03/18 1000 AC 03/18 IV 0807 Diltiazem HCl 0 .STK-MED ONE 03/17 1528 DC .ROUTE Lorazepam 0.4 MG Q4P PRN 03/17 2200 AC 03/18 IV 0846 Metoprolol Tartrate 5 MG ONCE ONE 03/17 1500 DC 03/17 IV 03/17 1501 1500 Metoprolol Tartrate 0 .STK-MED ONE 03/17 1455 DC IV Morphine Sulfate 1 MG ONCE ONE 03/18 1030 DC 03/18 IV 03/18 1031 1032 Morphine Sulfate 2 MG Q1 NEEDED PRN 03/18 1030 AC 03/18 IV 1323 Morphine Sulfate 1 MG Q1P PRN 03/17 2200 DC 03/18 IV 0952 Morphine Sulfate 0 .STK-MED ONE 03/17 191 DC .ROUTE Morphine Sulfate 0.5 MG ONCE ONE 03/17 191 DC 03/17 IV 03/17 1916 192 Morphine Sulfate 0 .STK-MED ONE 03/17 1855 DC .ROUTE Morphine Sulfate 2 MG ONCE ONE 03/17 1815 DC IV 03/17 1816 Potassium Chloride 10 MEQ Q1H 03/17 2015 DC IV 03/17 2116 Sodium Chloride 1,000 ML BOLUS ONE 03/17 1515 DC 03/17 IV 03/17 1614 1500 Sodium Chloride 1,000 ML BOLUS ONE 03/17 1515 DC 03/17 IV 03/17 1614 1550 Sodium Chloride 1,000 ML BOLUS ONE 03/17 1500 DC 03/17 IV 03/17 1559 1635 Vancomycin HCl 0 .STK-MED ONE 03/17 1642 DC .ROUTE Vancomycin HCl 1,000 MG ONCE ONE 03/17 1515 DC 03/17 Sodium Chloride 250 ML IV 03/17 1614 1644 Last 24 Hrs of Lab/Sundeep Results Last 24 Hrs of Labs/Mics: Laboratory Tests 03/17/17 2135: Troponin I 0.29 *H 03/17/17 2135: Lactic Acid 1.4 03/17/17 1600: Lactic Acid 2.1 03/17/17 1600: Ammonia 10 03/17/17 1538: Urine Color ORANG H, Urine Clarity TURBD H, Urine pH 6.5, Ur Specific [place] 1.025, Urine Protein >=300 H, Urine Ketones TRACE H, Urine Nitrite POS H, Urine Bilirubin POS@ICTO H, Urine Urobilinogen 4.0 H, Ur Leukocyte Esterase LARGE H, Ur Microscopic SEDIMENT EXAMINED, Urine RBC 10-15 H, Urine WBC PACKD H, Urine Crystals 1+ CA OX H, Urine Bacteria PACKD H, Urine Hemoglobin LARGE H, Urine Glucose NEG 03/17/17 1520: Anion Gap 10, Estimated GFR > 60, BUN/Creatinine Ratio 31.7 H, Glucose 115 H, Lactic Acid 3.1 H, Calcium 8.4, Total Bilirubin 5.5 H, AST 376 H, ALT 233 H, Alkaline Phosphatase 802 H, Creatine Kinase 85, Troponin I 0.06, Total Protein 6.6, Albumin 2.9 L, Globulin 3.7, Albumin/Globulin Ratio 0.8 L, Lipase 113, PT 17.7 H, INR 1.69 H, APTT 40 H, CBC w Diff NO MAN DIFF REQ, RBC 4.18 L, MCV 86.7, MCH 27.8, RDW 17.5 H, MPV 7.8, Gran % 79.6 H, Lymphocytes % 12.7 L, Monocytes % 7.1, Eosinophils % 0.3, Basophils % 0.3, Absolute Granulocytes 12.6 H, Absolute Lymphocytes 2.0, Absolute Monocytes 1.1 H, Absolute Eosinophils 0.1 , Absolute Basophils 0.1, PUBS MCHC 32.0 L Microbiology 03/17 1615 BLOOD: Blood Culture - RES 03/17 1600 BLOOD: Blood Culture - RES 03/17 1530 URINE ROUT: Urine Culture - RES GRAM NEGATIVE RODS Assessment/Plan Assessment: Patient was made comfort care after a detailed discussion was held with sister lazaro. Case mx to be informed, A hospice evalution will be obtained today. Will cont Morphine, ceftriaxone, lorazepam. Problem List: 1. SVT (supraventricular tachycardia) 2. SDH (subdural hematoma) Pain Ratin Pain Location: none Pain Goal: Remain pain free Pain Plan: morphine Tomorrow's Labs & Rationales: none
[2017-03-18 16:53] VITALS: BP 110/66
--- NOTE | 2017-03-18 17:52 | PN- Att Addend ---
Attending Addendum Attending Brief Note Patient not doing well still barely responsive. Her heart rate is between 1900. No other changes on physical. Family aware of the poor prognosis and wished comfort care but not ready for hospice care . He was transferred to telemetry to medical floor and continue comfort care. 24 TOTALS 03/18 0000 03/17 0000 Intake Total 1000 Output Total 400 Balance 600 Intake, IV 1000 Intake, Oral 0 Number 0 Bowel Movements Output, Urine 400 Patient 167 lb Weight Weight Reported by Patient Measurement Method Current Medications Sig/Mil Start time Last Medication Dose Route Stop Time Status Admin Ceftriaxone Sodium 1,000 MG DAILY 03/18 1000 AC 03/18 IV 0807 Lorazepam 0.4 MG Q4P PRN 03/17 2200 AC 03/18 IV 1504 Morphine Sulfate 1 MG ONCE ONE 03/18 1030 DC 03/18 IV 03/18 1031 1032 Morphine Sulfate 2 MG Q1 NEEDED PRN 03/18 1030 AC 03/18 IV 1628 Morphine Sulfate 1 MG Q1P PRN 03/17 2200 DC 03/18 IV 0952 Morphine Sulfate 0 .STK-MED ONE 03/17 1919 DC .ROUTE Morphine Sulfate 0.5 MG ONCE ONE 03/17 191 DC 03/17 IV 03/17 1916 1929 Morphine Sulfate 0 .STK-MED ONE 03/17 1855 DC .ROUTE Morphine Sulfate 2 MG ONCE ONE 03/17 181 DC IV 03/17 181 Potassium Chloride 10 MEQ Q1H 03/17 2015 DC IV 03/17 2116 Laboratory Tests 03/17/17 2135: Troponin I 0.29 *H 03/17/17 2135: Lactic Acid 1.4 03/17/17 1600: Lactic Acid 2.1 03/17/17 1600: Ammonia 10 03/17/17 1538: Urine Color ORANG H, Urine Clarity TURBD H, Urine pH 6.5, Ur Specific [place] 1.025, Urine Protein >=300 H, Urine Ketones TRACE H, Urine Nitrite POS H, Urine Bilirubin POS@ICTO H, Urine Urobilinogen 4.0 H, Ur Leukocyte Esterase LARGE H, Ur Microscopic SEDIMENT EXAMINED, Urine RBC 10-15 H, Urine WBC PACKD H, Urine Crystals 1+ CA OX H, Urine Bacteria PACKD H, Urine Hemoglobin LARGE H, Urine Glucose NEG 03/17/17 1520: Anion Gap 10, Estimated GFR > 60, BUN/Creatinine Ratio 31.7 H, Glucose 115 H, Lactic Acid 3.1 H, Calcium 8.4, Total Bilirubin 5.5 H, AST 376 H, ALT 233 H, Alkaline Phosphatase 802 H, Creatine Kinase 85, Troponin I 0.06, Total Protein 6.6, Albumin 2.9 L, Globulin 3.7, Albumin/Globulin Ratio 0.8 L, Lipase 113, PT 17.7 H, INR 1.69 H, APTT 40 H, CBC w Diff NO MAN DIFF REQ, RBC 4.18 L, MCV 86.7, MCH 27.8, RDW 17.5 H, MPV 7.8, Gran % 79.6 H, Lymphocytes % 12.7 L, Monocytes % 7.1, Eosinophils % 0.3, Basophils % 0.3, Absolute Granulocytes 12.6 H, Absolute Lymphocytes 2.0, Absolute Monocytes 1.1 H, Absolute Eosinophils 0.1 , Absolute Basophils 0.1, PUBS MCHC 32.0 L
--- NOTE | 2017-03-19 07:27 | PN- Housestaff ---
Subjective Follow-up For: CVA Sepsis likely secondary to UTI Altered mental status/agitation SVT Elevated liver enzymes Subjective: Patient seen and examined, lying in bed in mild distress, patient cont comfort care pending hospice evaluation. Review of Systems Constitutional: Reports: see HPI. Objective Last 24 Hrs of Vital Signs/I&O Vital Signs Date Time Temp Pulse Resp B/P B/P Pulse O2 O2 Flow FiO2 Mean Ox Delivery Rate 03/19 1402 97.7 110 20 125/90 98 03/19 0828 98.8 115 22 158/88 94 03/19 0800 Nasal 2.0L Cannula 03/19 0000 Nasal 2.0L Cannula Intake & Output 03/19 1600 03/19 0800 03/19 0000 Intake Total 0 Output Total 400 175 Balance -400 -175 Intake, Oral 0 Output, Urine 400 175 Physical Exam General Appearance: Mild Distress Current Medications: Current Medications Sig/Mil Start time Last Medication Dose Route Stop Time Status Admin Ceftriaxone Sodium 1,000 MG DAILY 03/18 1000 AC 03/19 IV 0849 Lorazepam 1 MG Q2P PRN 03/19 1100 AC 03/19 IV 1359 Lorazepam 0.4 MG Q4P PRN 03/17 2200 DC 03/19 IV 0948 Morphine Sulfate 2 MG Q1 NEEDED PRN 03/18 1030 AC 03/19 IV 1358 Assessment/Plan Assessment: Patient was made comfort care after a detailed discussion was held with sister lazaro. pending hospice evalution. Will cont Morphine, ceftriaxone, lorazepam. Problem List: 1. SVT (supraventricular tachycardia) 2. Ascending cholangitis 3. SDH (subdural hematoma) 4. CVA (cerebral vascular accident) Pain Ratin Pain Location: none Pain Goal: Remain pain free Pain Plan: morphine Tomorrow's Labs & Rationales: none
[2017-03-19 08:28] VITALS: BP 158/88
--- NOTE | 2017-03-19 12:31 | PN- Att Addend ---
Attending Addendum Attending Brief Note Patient doing poorly, and to be uncomfortable. Not very responsive. Oxygen on. Vital signs are still stable no changes on physical. Patient on comfort care which check again with family to see if there ready for hospice care 24 TOTALS 03/19 0000 03/18 0000 Intake Total 0 1000 Output Total 775 400 Balance -775 600 Intake, IV 1000 Intake, Oral 0 0 Number 0 Bowel Movements Output, Urine 775 400 Patient 167 lb Weight Weight Reported by Patient Measurement Method Current Medications Sig/Mil Start time Last Medication Dose Route Stop Time Status Admin Ceftriaxone Sodium 1,000 MG DAILY 03/18 1000 AC 03/19 IV 0849 Lorazepam 1 MG Q2P PRN 03/19 1100 AC IV Lorazepam 0.4 MG Q4P PRN 03/17 2200 DC 03/19 IV 0948 Morphine Sulfate 2 MG Q1 NEEDED PRN 03/18 1030 AC 03/19 IV 1226 Laboratory Tests 03/17/17 2135: Troponin I 0.29 *H 03/17/17 2135: Lactic Acid 1.4 03/17/17 1600: Lactic Acid 2.1 03/17/17 1600: Ammonia 10 03/17/17 1538: Urine Color ORANG H, Urine Clarity TURBD H, Urine pH 6.5, Ur Specific [place] 1.025, Urine Protein >=300 H, Urine Ketones TRACE H, Urine Nitrite POS H, Urine Bilirubin POS@ICTO H, Urine Urobilinogen 4.0 H, Ur Leukocyte Esterase LARGE H, Ur Microscopic SEDIMENT EXAMINED, Urine RBC 10-15 H, Urine WBC PACKD H, Urine Crystals 1+ CA OX H, Urine Bacteria PACKD H, Urine Hemoglobin LARGE H, Urine Glucose NEG 03/17/17 1520: Anion Gap 10, Estimated GFR > 60, BUN/Creatinine Ratio 31.7 H, Glucose 115 H, Lactic Acid 3.1 H, Calcium 8.4, Total Bilirubin 5.5 H, AST 376 H, ALT 233 H, Alkaline Phosphatase 802 H, Creatine Kinase 85, Troponin I 0.06, Total Protein 6.6, Albumin 2.9 L, Globulin 3.7, Albumin/Globulin Ratio 0.8 L, Lipase 113, PT 17.7 H, INR 1.69 H, APTT 40 H, CBC w Diff NO MAN DIFF REQ, RBC 4.18 L, MCV 86.7, MCH 27.8, RDW 17.5 H, MPV 7.8, Gran % 79.6 H, Lymphocytes % 12.7 L, Monocytes % 7.1, Eosinophils % 0.3, Basophils % 0.3, Absolute Granulocytes 12.6 H, Absolute Lymphocytes 2.0, Absolute Monocytes 1.1 H, Absolute Eosinophils 0.1 , Absolute Basophils 0.1, PUBS MCHC 32.0 L Microbiology 03/17 1530 URINE ROUT: Urine Culture - COMP ESCHERICHIA COLI
--- NOTE | 2017-03-19 13:45 | NUR ---
PT ARRIVED TO FLOOR VIA BED TRANSFER FROM TELEMETRY. [address] TACHYCARDIC BUT OTHER VSS. MINIMALLY RESPONSIVE, ATTEMPTS TO OPEN EYES WITH SPOKEN TO BUT NO VERBAL RESPONSE. PT FIDGITY AND GRABBING AT RIGHT ABDOMEN. PER SISTER CATALINA WHO IS AT BEDSIDE, PT HAS BEEN HAVING RIGHT ABDOMINAL PAIN R/T HER LIVER CA. IV MOPRHINE AND IV ATIVAN GIVEN FOR PRESUMED PAIN AND AGITATION. REPOSITIONED TO LEFT SIDE FOR COMFORT. SMALL OPEN AREA NOTED TO RIGHT BUTTOCKS. BLE EDEMA NOTED. ALCAZAR TO GRAVITY DRAINING DARK KEN URINE. MOUTH CARE ATTEMPTED. SISTER CATALINA AT BEDSIDE. EDUCATION PROVIDED ABOUT AND DYING PROCESS. BED ALARM PLACED. SAFETY MAINTAINED.
[2017-03-19 14:02] VITALS: BP 125/90
[2017-03-19 22:27] VITALS: BP 138/76
[2017-03-20 06:46] VITALS: BP 140/86
--- NOTE | 2017-03-20 08:44 | PN- Housestaff ---
Subjective Follow-up For: Pancreatic cancer with metastasis, cholangitis, CVA, sepsis secondary to UTI, SDH, atrial fibrillation Subjective: I followed up and examined on the patient today. She is resting comfortably in bed, minimally responsive to stimulus, breathing with open mouth. Her family member is by her bedside, and is waiting for others to joint for the possible hospice related meeting later today. Review of Systems Constitutional: Reports: no symptoms. Objective Last 24 Hrs of Vital Signs/I&O Vital Signs Date Time Temp Pulse Resp B/P B/P Pulse O2 O2 Flow FiO2 Mean Ox Delivery Rate 03/20 0646 98.6 105 20 140/86 95 Nasal Cannula 03/20 0000 95 Nasal 2.0L Cannula 03/19 2227 98.7 112 20 138/76 95 Nasal Cannula Intake & Output 03/20 1600 03/20 0800 03/20 0000 Intake Total 0 0 Output Total 150 200 Balance -150 -200 Intake, Oral 0 0 Output, Urine 150 200 Physical Exam General Appearance: Sleeping, comfortable Skin: No Rashes, No Breakdown HEENT: Atraumatic, mouth breather, dry mucosa Cardiovascular: Normal S1, Normal S2, irregular irregular rate Lungs: diminished breath sounds Abdomen: Normal Bowel Sounds, Soft Neurological: not fully assessible due to patient's condition Current Medications: Current Medications noted after the patient was converted to Hospice care Sig/Mil Start time Last Medication Dose Route Stop Time Status Admin Ceftriaxone Sodium 1,000 MG DAILY 03/18 1000 DCD 03/19 IV 0849 Lorazepam 1 MG Q2P PRN 03/19 1100 DCD 03/20 IV 0816 Morphine Sulfate 2 MG Q1 NEEDED PRN 03/18 1030 DCD 03/20 IV 0815 Assessment/Plan Assessment: 66-year-old female with medical history significant for pancreatic cancer with metastasis, cholangitis, CVA, sepsis secondary to UTI, SDH, atrial fibrillation, was transferred to the general medical floor from telemetry floor yesterday evening, and is being managed with comfort measures only. Patient continues to do poorly, with family members mentioned that she feels to recognize them, and seems worse than yesterday. Prognosis remains guarded and the family has been made well aware of the condition. Family meeting was held with hospice nurse earlier today, and decided on changing the patient's care level to hospice care. Attending doctor notified, and the patient discharged accordingly. Hospice care will be provided immediately following the discharge. ---- Problem List: 1. Metastasis from pancreatic cancer 2. CVA (cerebral vascular accident) 3. Cholangitis 4. Sepsis 5. UTI (urinary tract infection) 6. Afib 7. SDH (subdural hematoma) Pain Ratin (unable to provide feedback) Pain Location: - Pain Goal: Pain 4 or less Pain Plan: morphine, lorazepam Tomorrow's Labs & Rationales: -
--- NOTE | 2017-03-20 18:28 | PN- Att Addend ---
Attending Addendum Attending Brief Note Patient still doing poorly, but very comfortable this morning in bed, per family she was a little brighter yesterday and recognized her family but today she is again nonresponsive and the final decision to make patient to hospice care was made by patient's sister and knees to discussions with hospice nurse she would be transferred to the hospitalist service for comfort care.
--- NOTE | 2017-03-20 18:46 | Discharge Summary ---
Visit Information Visit Dates Admission Date: 03/17/17 Discharge Date: 03/20/17 Hospital Course Course Attending Physician: CB WING MD Primary Care Physician: CB WING MD Consulting Request: Consulting Specialty: Neurology (and gastroenterology) Consulting Physician: Drs. Garsia and Caryn Reason for Consult: the patient unresponsive recent CVA and liver mass with abnormal liver fun Hospital Course: 66-year-old single white female who was at a short-term rehabilitation to her recent CVA and DVT and PE also found out that the liver mass pancreatic cancer was there for rehabilitation agitated and was sent to the ER was found to have a very fast heart rate at first after medications went into atrial flutter fib and then to normal sinus rhythm after treatment had a dirty urine high white count I lactic acid of 3.1 liver function tests found to probably have sepsis secondary to UTI patient was admitted to the medical floor was not responsive doing poorly blood cultures were negative the urine showed more than 100,000 colonies of Escherichia coli patient was seen by the neurologist and manager nursing due to the poor prognosis at at first the family made her comfort care after a couple of days patient had a hospitalist consultation family agreed to the hospitalist service. Allergies: Coded Allergies: pseudoephedrine (UNKNOWN PER 03/17/17) Pertinent Lab Results: Laboratory Tests 03/17/172134: Troponin I 0.29 *H 03/17/172134: Lactic Acid 1.4 Laboratory Tests 03/17 03/17 03/17 1600 1600 1538 Chemistry Lactic Acid (0.7 - 2.1 mmol/L) 2.1 Ammonia (9 - 30 umol/L) 10 Urines Urine Color (YEL,AMB,STR) ORANG H Urine Clarity (CLEAR) TURBD H Urine pH (5.0 - 8.0) 6.5 Ur Specific Dubberly (1.001 - 1.035) 1.025 Urine Protein (NEG,<30 MG/DL) >=300 H Urine Ketones (NEG) TRACE H Urine Nitrite (NEG) POS H Urine Bilirubin (NEG) POS@ICTO H Urine Urobilinogen (0.1 - 1.0 EU/dl) 4.0 H Ur Leukocyte Esterase (NEG) LARGE H Ur Microscopic SEDIMENT EXAMINED Urine RBC (0 - 5 /HPF) 10-15 H Urine WBC (0 - 2 /HPF) PACKD H Urine Crystals 1+ CA OX H Urine Bacteria (NEG/NONE) PACKD H Urine Hemoglobin (NEG) LARGE H Urine Glucose (N MG/DL) NEG 03/17 1520 Chemistry Sodium (137 - 145 mmol/L) 138 Potassium (3.5 - 5.1 mmol/L) 3.6 Chloride (98 - 107 mmol/L) 99 Carbon Dioxide (22 - 30 mmol/L) 28 Anion Gap (5 - 16) 10 BUN (7 - 17 mg/dL) 19 H Creatinine (0.5 - 1.0 mg/dL) 0.6 Estimated GFR (>60 ml/min) > 60 BUN/Creatinine Ratio (7 - 25 %) 31.7 H Glucose (65 - 99 mg/dL) 115 H Lactic Acid (0.7 - 2.1 mmol/L) 3.1 H Calcium (8.4 - 10.2 mg/dL) 8.4 Total Bilirubin (0.2 - 1.3 mg/dL) 5.5 H AST (14 - 36 U/L) 376 H ALT (9 - 52 U/L) 233 H Alkaline Phosphatase (<127 U/L) 802 H Creatine Kinase (30 - 135 U/L) 85 Troponin I (< 0.11 ng/ml) 0.06 Total Protein (6.3 - 8.2 g/dL) 6.6 Albumin (3.5 - 5.0 g/dL) 2.9 L Globulin (1.9 - 4.2 gm/dL) 3.7 Albumin/Globulin Ratio (1.1 - 2.2 %) 0.8 L Lipase (23 - 300 U/L) 113 Coagulation PT (9.4 - 12.5 SEC) 17.7 H INR (0.90 - 1.19) 1.69 H APTT (25 - 37 SEC) 40 H Hematology CBC w Diff NO MAN DIFF REQ WBC (4.8 - 10.8 /CUMM) 15.8 H RBC (4.20 - 5.40 /CUMM) 4.18 L Hgb (12.0 - 16.0 G/DL) 11.6 L Hct (37 - 47 %) 36.2 L MCV (81.0 - 99.0 FL) 86.7 MCH (27.0 - 31.0 PG) 27.8 RDW (11.5 - 14.5 %) 17.5 H Plt Count (130 - 400 /CUMM) 424 H MPV (7.4 - 10.4 FL) 7.8 Gran % (42.2 - 75.2 %) 79.6 H Lymphocytes % (20.5 - 51.1 %) 12.7 L Monocytes % (1.7 - 9.3 %) 7.1 Eosinophils % (0 - 5 %) 0.3 Basophils % (0.0 - 2.0 %) 0.3 Absolute Granulocytes (1.4 - 6.5 /CUMM) 12.6 H Absolute Lymphocytes (1.2 - 3.4 /CUMM) 2.0 Absolute Monocytes (0.10 - 0.60 /CUMM) 1.1 H Absolute Eosinophils (0.0 - 0.7 /CUMM) 0.1 Absolute Basophils (0.0 - 0.2 /CUMM) 0.1 PUBS MCHC (33.0 - 37.0 G/DL) 32.0 L 03/17/17 1538: Urine Color ORANG H, Urine Clarity TURBD H, Urine pH 6.5, Ur Specific Dubberly 1.025, Urine Protein >=300 H, Urine Ketones TRACE H, Urine Nitrite POS H, Urine Bilirubin POS@ICTO H, Urine Urobilinogen 4.0 H, Ur Leukocyte Esterase LARGE H, Ur Microscopic SEDIMENT EXAMINED, Urine RBC 10-15 H, Urine WBC PACKD H, Urine Crystals 1+ CA OX H, Urine Bacteria PACKD H, Urine Hemoglobin LARGE H, Urine Glucose NEG 03/17/17 1520: Anion Gap 10, Estimated GFR > 60, BUN/Creatinine Ratio 31.7 H, Glucose 115 H, Lactic Acid 3.1 H, Calcium 8.4, Total Bilirubin 5.5 H, AST 376 H, ALT 233 H, Alkaline Phosphatase 802 H, Creatine Kinase 85, Troponin I 0.06, Total Protein 6.6, Albumin 2.9 L, Globulin 3.7, Albumin/Globulin Ratio 0.8 L, Lipase 113, PT 17.7 H, INR 1.69 H, APTT 40 H, CBC w Diff NO MAN DIFF REQ, RBC 4.18 L, MCV 86.7, MCH 27.8, RDW 17.5 H, MPV 7.8, Gran % 79.6 H, Lymphocytes % 12.7 L, Monocytes % 7.1, Eosinophils % 0.3, Basophils % 0.3, Absolute Granulocytes 12.6 H, Absolute Lymphocytes 2.0, Absolute Monocytes 1.1 H, Absolute Eosinophils 0.1 , Absolute Basophils 0.1, PUBS MCHC 32.0 L Disposition Summary Disposition Principal Diagnosis: Cardiac arrhythmia Urinary tract infection Sepsis of urological origin Malignancy of the liver Additional Diagnosis: History of arrhythmias Discharge Disposition: hospice - medical facilit Discharge Instructions General Discharge Information Code Status: Hospice Patient's Diet: As per hospitalist Patient's Activity: Bedrest Follow-Up Instructions/Appts: Instructions as per hospice Copies To: GRETCHEN CANAS,KADE; CLEMENTE CANAS,CHRISTIE Borden; CB WING MD Attending Review Statement Documenting Attending: CB WING MD
== END 2017-03-20 12:10 | disposition hospice, home (50) | DRG 871 ==
LOC: ERH 14:40 → 1NO 17:58 → ERHI 17:58 → ENRESERV 18:50 → ENTRNSPT 19:42 → 1NO 20:24 → CMPTRNSPT 21:14 → 1NO 03-18 08:09 → 2NA 03-19 13:45
PROVIDERS: Emergency Medicine; ADMIT Internal Medicine
DX: A41.51 Sepsis due to Escherichia coli [E. coli] (principal); I63.9 Cerebral infarction, unspecified; I62.00 Nontraumatic subdural hemorrhage, unspecified; K83.0 Cholangitis; C78.7 Secondary malignant neoplasm of liver and intrahepatic bile duct; C78.00 Secondary malignant neoplasm of unspecified lung; C25.9 Malignant neoplasm of pancreas, unspecified; I47.1 Supraventricular tachycardia; I69.354 Hemiplegia and hemiparesis following cerebral infarction affecting left non-dominant side; I48.92 Unspecified atrial flutter; I48.0 Paroxysmal atrial fibrillation; N39.0 Urinary tract infection, site not specified; R17 Unspecified jaundice; I10 Essential (primary) hypertension; R74.0 Nonspecific elevation of levels of transaminase and lactic acid dehydrogenase [LDH]; Z86.711 Personal history of pulmonary embolism; Z86.718 Personal history of other venous thrombosis and embolism; Z66 Do not resuscitate; Z51.5 Encounter for palliative care; Z79.01 Long term (current) use of anticoagulants; G40.909 Epilepsy, unspecified, not intractable, without status epilepticus; J44.9 Chronic obstructive pulmonary disease, unspecified; F32.9 Major depressive disorder, single episode, unspecified; E01.0 Iodine-deficiency related diffuse (endemic) goiter
CPT/HCPCS: 1NP; 2NASP; 74177; 81001; 87040; 87086; 93005; 93010; 96361; 96374; 96375; J0153; J0696; J0713; J2270; J3370; J7040

== ENCOUNTER 2017-03-20 12:11 | Inpatient (IN) | payer OTHER ==
[~2017-03-20 12:11] MED LIST changes: +ACEPHEN650 M1 PR; +ASPIRIN EC81 M1 PO; +ATORVASTATIN CA80 M1 PO; +DULCOLAX10 M1 RC; +DULCOLAX5 M1 PO; +ENOXAPARIN100 MG/1 M SC; +FLEET ENEMA133 ML RC; +FLUOXETINE HCL20 M2 PO; +IPRAT-ALBUT 0.5-3 ML INH; +LACTULOSE20 GM/30 M PO; +LASIX20 M1 PO; +LORAZEPAM2 MG/1 M2 SL; +LYRICA25 M1 PO; +MILK OF MA400 MG/52 PO; +MORPHINE S20 MG/5 ML SL; +MULTI-DAY VITA1 EACH PO; +PAIN & FEVER325 M1 PO; +PROMOD946 ML PO; +TRAMADOL HCL50 M1 PO; +ZOFRAN4 M2 PO
--- NOTE | 2017-03-20 15:09 | History & Physical ---
See Addendum General Information and HPI Chief Complaint: admit to hospice Source of Information: old records Exam Limitations: unable to give history, clinical condition Associated Symptoms: pain-moaning, grimacing History of Present Illness: Ms. Min is a 66-year-old female with medical history of recent finding of pancreatic Ca. vs. Cholangio Ca. 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 mass along tentorium. Pt. is not alert, unable to take oral food/fluid, moaning and grimacing in pain. She has received 7 doses morphine last 24 hours. Sister has opted for hospice care given pt's poor prognosis and previous knowledge of her wishes. Allergies/Medications Allergies: Coded Allergies: pseudoephedrine (UNKNOWN PER 03/17/17) Past History Medical History Neurological: SEIZURE STROKE EENT: NONE Cardiovascular: AFIB, FAST HEART RATE Respiratory: COPD, pulmonary embolism (saddle embolus 12/12/16), B/L LE DVT Gastrointestinal: NONE Hepatic: jaundice, abnormal LFTs Renal: NONE Musculoskeletal: NONE Psychiatric: depression Endocrine: thyromegaly Blood Disorders: DVT (B/L LE 11/2016 ), PE (11/2016) Cancer(s): pancreatic cancer (vs. cholangio Ca) PEELED [employer]OR/Reproductive: NONE Other Medical Hx: DVT History of MRSA: No History of VRE: No History of CDIFF: No Surgical History Surgical History: cardiac ablation Past Family/Social History Family History: non-contributory Psychosocial History: Single, no children. Had lived with sister prior to recent hospitalizations and transfer to rehabilitation center. Was lifelong smoker until spring 2016. Has advance directives. Functional Ability: Requires assist with ADLs/dependent for IADLs Review of Systems Review of Systems Constitutional: Reports: see HPI. Exam & Diagnostic Data Last 24 Hrs of Vital Signs/I&O T-98.6; HR-105; RR-20; BP-140/86; O2 sat 95% RA Physical Exam General Appearance Mild Distress, Female, appears older than age, moaning Skin moist, warm HEENT Atraumatic, dry oral mucous membranes Cardiovascular irregular Lungs mild tracheal secretions heard, no respiratory distress Abdomen Soft, tender to palpation Neurological unable to follow commands, Does not open eyes, nonverbal Extremities bilat. lower extremity edema R>L Reproductive (FEMALE) Arellano catheter with clear, yellow urine Last 24 Hrs of Labs/Sundeep: 03/17/17: WBC 15.8, Hgb 11.6, Hct 36.2, plt 424 Bun 19, Cr 0.6, Ast 376, Alt 233, Alk Phos 802, troponin 0.29 Urine cx positive for e. coli and blood cx neg to date. Diagnostic Data CXR Results 03/17/17: IMPRESSION: Patchy opacity right lower chest which could represent early pneumonia. Emphysema. Thyromegaly. Other Results head ct 03/17/17: IMPRESSION: 1. Findings concerning for a subacute large right middle cerebral artery infarct with gyriform enhancement versus hemorrhage. 2. Questionable subdural hematoma versus a mass along the tentorium on the left side. This will also require follow-up imaging. Critical result: Right MCA territorial subacute infarct with questionable associated hemorrhage versus enhancement was discussed with Dr. Anderson at 2045 hours on 03/17/2017. In addition, findings in regards to the suspected left-sided subdural hematoma were discussed at 2100 hours. It was ascertained that the content and urgency of the report was understood at the time of direct communication. Assessment/Plan Assessment: Ms. Min is a 66-year-old female with medical history of recent finding of pancreatic Ca. vs. Cholangio Ca. 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 mass along tentorium. Will increase and schedule morphine 3mg IV every 4 hours and every 1 hr as needed for pain relief and dyspnea For anxiety, schedule ativan 1mg every 6 hours and every 4 hours as needed Scopolamine patch for secretions, as well as Robinul 400mcg every 4 hrs as needed
--- NOTE | 2017-03-20 18:22 | PN- Att Addend ---
Attending Addendum Attending Brief Note Earlier this morning hospice nurse and patient's sister and knees got together and were ready for the patient to go to hospice with comfort care. I agreed with that. And will follow hospice recommendations.
[2017-03-21 06:41] VITALS: BP 124/70
--- NOTE | 2017-03-21 08:17 | NUR ---
PT MINIMAL RESPONSIVE,NO S/S DISTRESS, DISCOMFORT, OR LABORED BREATHING, PRN MORPHINE GIVEN AT 0730 FOR RESTLESSNESS [place] PATENT, PIV TO LH #24 PATENT AND CDI, ON SPECIALTY MATTRESS, FAMILY AT BEDSIDE, EMOTIONAL SUPPORT PROVIDED, WILL CONT TO MONITOR
--- NOTE | 2017-03-21 12:24 | NUR ---
PT RESTLESS, COUGHING, AND MOANING, PRN MORPHINE AND RUBINOL GIVEN WITH SCHEDULDED ATIVAN. FAMILY AT BEDSIDE, EMOTIONAL SUPPORT AND EDUCATION GIVEN. WILL CONTINUE TO MONITOR.
--- NOTE | 2017-03-21 13:47 | PN- Att Addend ---
Attending Addendum Attending Brief Note Ms. Min appears comfortable at this time. She did not spun to verbal stimuli nor to examination. She is afebrile with stable vital signs. Physical exam is unchanged. At this time we will continue hospice support.
--- NOTE | 2017-03-21 22:38 | NUR ---
LATE ENTRY: 2014 PT RESTLESS WITH REPOSITIONING, NON-VERBAL, GRIMMACING, RESTLESS, AGITATED, RESTLESS. GIVEN PRN MORPHINE AND ATIVAN. SEE EMAR.
--- NOTE | 2017-03-21 22:40 | NUR ---
PT REPOSITIONED TO COMFORT, MOUTH AND SKIN CARE GIVEN. PT CALM, COMFORTABLE. FELL BACK TO SLEEP. NO DISTRESS.
--- NOTE | 2017-03-22 00:42 | NUR ---
PT UNRESPONSIVE; 2LNC, NO S/SX OF RESP DISTRESS. T/R FOR COMFORT. MEDICATED PER EMAR SCHED ATIVAN. NO S/SX OF PAIN AT THIS TIME. RR WNL, SHALLOW.
[2017-03-22 06:03] VITALS: BP 118/70
--- NOTE | 2017-03-22 16:16 | PN- Att Addend ---
Attending Addendum Attending Brief Note Ava Pako is unchanged. We will continue to manage her per hospice protocol.
--- NOTE | 2017-03-23 04:09 | NUR ---
PT RR 10-12, SHALLOW, UNLABORED. NO S/SX OF PAIN OR DISTRESS AT THIS TIME. WILL CONTINUE TO MONITOR.
[2017-03-23 07:29] VITALS: BP 144/40
--- NOTE | 2017-03-23 11:04 | PN- Att Addend ---
Attending Addendum Attending Brief Note Patient very comfortable at this time no respiratory distress. And hospice nurse at the bedside vital signs are stable and no changes on physical. Donteea hospice comfort care.
--- NOTE | 2017-03-23 14:57 | NUR ---
PT MINIMALLY RESPONSIVE TO TACTILE STIMULI, RESTING COMFORTABLY IN BED. RR 16-18 WITH IRREGULAR PERIODS AND APNEA. FAMILY PRESENT AT BEDSIDE, EMOTIONAL SUPPORT GIVEN AND EDUCATION OFFERED. DUODERM LEONARDO DORSEY, C/D/I. PT REPOSITIONED AND MOUTH CARE GIVEN PER PROTOCOL. PT REFUSED MOUTH CARE AT 1000, 1200, AND 1400. SAFETY MAINTAINED.
--- NOTE | 2017-03-23 16:00 | NUR ---
PT RESTING COMFORTABLY RR 18. NOTICED INCREASED CONGESTION WITH PT, GIVEN PRN RUBINOL AND SCHEDULED 1800 MEDICATIONS. ON SIZEWISE. DUODERM TO L BUTT. ALCAZAR IN PLACE. SISTER AT BEDSIDE. PRECAUTIONS MAINTAINED.
--- NOTE | 2017-03-23 16:15 | PN- Hospice ---
Subjective Subjective: Pt is not alert, currently appears comfortable. Has been receiving morphine every 4-6 hours as needed (regularly) and ativan 1mg every 6 hours. Family at bedside. Objective Last 24 Hrs of Vital Signs/I&O Vital Signs Date Time Temp Pulse Resp B/P B/P Pulse O2 O2 Flow FiO2 Mean Ox Delivery Rate 03/23 1600 Nasal 2.0L Cannula 03/23 0800 Nasal 2.0L Cannula 03/23 0729 97.5 115 10 144/40 74 Nasal 2.0L Cannula 03/23 0000 Nasal 2.0L Cannula Intake & Output 03/23 1600 03/23 0800 03/23 0000 Intake Total 0 0 Output Total 135 150 100 Balance -135 -150 -100 Intake, Oral 0 0 Output, Urine 135 150 100 Physical Exam General Appearance: no apparent distress, sedated Head: dry mucous membranes Respiratory: no respiratory distress, lungs clear Cardiovascular: regular rate/rhythm Abdomen: soft, non-tender Extremities: pedal edema, no mottling Neurologic/Psychiatric: responsive to physical care Current Medications: Current Medications Sig/Mil Start time Last Medication Dose Route Stop Time Status Admin Acetaminophen 650 MG Q4P PRN 03/20 1245 AC MD Bisacodyl 10 MG DAILY NEEDED PRN 03/20 1245 AC MD Glycerin/Mineral Oil 1 PARTH Q8P PRN 03/20 1245 AC TOP Glycopyrrolate 400 MCG Q4P PRN 03/20 1300 AC 03/21 IV 1208 Lorazepam 1 MG Q6 03/20 1800 AC 03/23 IV 1157 Lorazepam 1 MG Q4P PRN 03/20 1245 AC 03/23 IV 0831 Morphine Sulfate 3 MG Q4 03/23 1800 AC IV Morphine Sulfate 3 MG Q4P 03/23 1500 DC IV Morphine Sulfate 3 MG Q4P PRN 03/23 1413 DC IV Morphine Sulfate 3 MG Q4P PRN 03/20 1245 DC 03/21 IV 2035 Morphine Sulfate 3 MG Q1P PRN 03/20 1245 AC 03/23 IV 1402 Scopolamine HBr 1 PAT Q72 03/23 1000 AC 03/23 TOP 0757 Assessment/Plan Assessment/Recommendations: Ms. Min is a 66-year-old female with medical history of recent finding of pancreatic Ca. vs. Cholangio Ca. 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 mass along tentorium. Will schedule morphine 3mg IV/SC every 4 hours and continue as needed also for comfort. Support provided to family. Problem List: 1. UTI (urinary tract infection) 2. SDH (subdural hematoma) 3. Liver mass
--- NOTE | 2017-03-24 | NUR ---
PT RR 20, NONLABORED BREAHTING ON 2L NC, NO S/S DISTRESS OR DISCOMFORT. SCHEDULED MEDS GIVEN PER EMAR, WILL MONITOR.
--- NOTE | 2017-03-24 04:00 | NUR ---
PT RESTING WITH EYES CLOSED, MINIMALLY RESPONSIVE, RR 20 ON 2L NC, NO S/S DISTRESS. WILL CONTINUE TO MONITOR.
[2017-03-24 05:54] VITALS: BP 102/44
--- NOTE | 2017-03-24 06:11 | NUR ---
PT TEMP 101.5, SUPP OF TYLENOL GIVEN, WILL RECHECK TEMP
--- NOTE | 2017-03-24 08:03 | NUR ---
ASSUMED CARE OF PATIENT AT 0700, CURRENTLY RESTING COMFORTABLY, TEMP AT 0715 WAS 102 AXILLARY, TYLENOL WAS GIVEN AT 6 AM WILL DISCUSS WITH LIP NEED FOR FURTHER INTERVENTION, RR 14, GENERAL EDEMA NOTED, UNRESPONSIVE, SAFETY MAINTAINED AT THIS TIME.
--- NOTE | 2017-03-24 10:02 | PN- Att Addend ---
Attending Addendum Attending Brief Note Per sister patient was little bit more short of breath last evening, not this morning. Very little urine output and no other changes hospice comfort care continues
--- NOTE | 2017-03-24 10:56 | NUR ---
RECHECKED PATIENT TEMPERATURE RECTAL FOUND TO BE 101.8 AT 0830, LIANNE SAMUELS APRN NOTIFIED AND ASPIRIN ORDERED, RECTALLY, TYLENOL CHANGED TO SCHEDULED. APSIRIN GIVEN, TEMP RECHECKED AT 1000 AND FOUND TO BE 99.9 AXILLARY. PATIENT RESTING COMFORTABLY AT THIS TIME. SAFETY MAINTAINED.
--- NOTE | 2017-03-24 11:57 | NUR ---
PATIENT AXILLARY TEMP DOWN TO 99.4 RESTING COMFORTABLY, BROW RELAXED, BREATHING WNL, WILL GIVE SCEHDULED ATIVAN, SAFETY MAINTAINED
--- NOTE | 2017-03-24 13:15 | PN- Hospice ---
Subjective Subjective: Family at bedside. Pt. receiving morphine 3mg every 4 hours and required 2 prn doses since midnight, still moaning/grimacing with care not long after receiving doses. Also on ativan scheduled. Fever noted this am and did not come down with tylenol suppository. Aspirin supp. ordered and tylenol scheduled every 4 hours. Temp down to 99.4. Objective Last 24 Hrs of Vital Signs/I&O Vital Signs Date Time Temp Pulse Resp B/P B/P Pulse O2 O2 Flow FiO2 Mean Ox Delivery Rate 03/24 1145 99.4 03/24 1047 99.8 03/24 0800 Nasal 2.0L Cannula 03/24 0715 102.0 03/24 0604 101.5 03/24 0554 101.5 128 16 102/44 81 Nasal Cannula 03/24 0000 Nasal 2.0L Cannula 03/23 1600 Nasal 2.0L Cannula Intake & Output 03/24 1600 03/24 0800 03/24 0000 Intake Total 0 0 Output Total 200 Balance 0 -200 Intake, Oral 0 0 Number 0 Bowel Movements Output, Urine 200 Physical Exam General Appearance: comfortable, sedated Ears, Nose, Throat: mucous membranes dry Respiratory: normal breath sounds, no respiratory distress Cardiovascular: tachycardia Extremities: bilat. lower extremity edema Current Medications: Current Medications Sig/Mil Start time Last Medication Dose Route Stop Time Status Admin Acetaminophen 650 MG Q4 03/24 1000 AC 03/24 [place] 1047 Acetaminophen 650 MG Q4P PRN 03/20 1245 DC 03/24 [place] 0604 Aspirin 300 MG Q4P PRN 03/24 0845 03/24 [place] 0913 Bisacodyl 10 MG DAILY NEEDED PRN 03/20 1245 [place] Glycerin/Mineral Oil 1 PARTH Q8P PRN 03/20 1245 TOP Glycopyrrolate 400 MCG Q4P PRN 03/20 1300 AC 03/23 IV 2205 Lorazepam 1 MG Q6 03/20 1800 AC 03/24 IV 1204 Lorazepam 1 MG Q4P PRN 03/20 1245 AC 03/23 IV 0831 Morphine Sulfate 3 MG Q4 03/23 1800 03/24 IV 1014 Morphine Sulfate 3 MG Q4P 03/23 1500 DC IV Morphine Sulfate 3 MG Q4P PRN 03/23 1413 DC IV Morphine Sulfate 3 MG Q4P PRN 03/20 1245 DC 03/21 IV 2035 Morphine Sulfate 3 MG Q1P PRN 03/20 1245 AC 03/24 IV 1106 Scopolamine HBr 1 PAT Q72 03/23 1000 03/23 [facility] 0757 Assessment/Plan Assessment/Recommendations: Ms. Min is a 66-year-old female with medical history of recent finding of pancreatic Ca. vs. Cholangio Ca. 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 mass along tentorium. Appears uncomfortable still on current regimen--Start morphine drip 2mg/hr with titration protocol. Discussed with family, questions answered. Support provided to family. Problem List: 1. UTI (urinary tract infection) 2. SDH (subdural hematoma) 3. Liver mass
--- NOTE | 2017-03-24 14:18 | NUR ---
MORPHINE GTT STARTED AT 2MG/HR, CURRENTLY WITH MILD GRIMACING TO FACE, TEMP 99.6, SCEHDULED TYLENOL TO VBE GIVEN, NO URINE OUTPUT FOR SHIFT, SAFETY MAINTAINED.
--- NOTE | 2017-03-25 | NUR ---
PT UNRESPONSIVE, RR 5 ON 2L NC, MORPHINE GTT 2MG/HR, NO SIGNS/SYMPTOMS OF DISTRESS OR DISCOMFORT. GENERALIZED EDEMA NOTED, SMALL OPEN AREA TO COCCYX. SKIN WARM TO TOUCH. SCHEDULED ATIVAN GIVEN PER EMAR. PT TURNED AND REPOSTIONED, ALCAZAR IN PLACE DRAINING DARK KEN URINE. WILL CONTINUE TO MONITOR.
--- NOTE | 2017-03-25 01:40 | NUR ---
PT TEMP IS 99.5, SCHEDULED TYLENOL SUPP GIVEN. WILL MONITOR
--- NOTE | 2017-03-25 04:00 | NUR ---
PT UNRESPOSNIVE, RESTING SEEMINGLY COMFORTABLE, NO SIGNS/SYMPTOMS OF DISTRESS OR PAIN. RR 4 ON 2L NC. WILL CONTINUE TO MONTIOR
[2017-03-25 06:47] VITALS: BP 102/50
--- NOTE | 2017-03-25 08:00 | NUR ---
PT UNRESPONSIVE AT THIS TIME. 2LNC IN PLACE. RR 10-12/MIN. AUDIBLE CONGESTION NOTED. SCOPOLAMINE PATCH TO R EAR. PER NIGHT RN, IV INFILTRATED AND UNABLE TO ESTABLISH NEW ACCESS. IV MORPHINE GTT ON HOLD. RN HAD ATTEMPTED TO REACH HOPITALIST WITH NO RETURNED CALL. WILL CALL DR. WING FOR ORDERS. NO PAIN/DISCOMFORT NOTED. ON SPECIALTY BED. BED ALARM IN PLACE. WILL MONITOR.
--- NOTE | 2017-03-25 09:00 | NUR ---
CALL RETURNED BY DR. WING FOR ALL IV ORDERS TO BE CHANGED TO SC. TELEPHONE ORDERS IN PLACE AND SENT TO PHARMACY. SC RUBINOL AND MORPHINE BUTTONS PLACED. MORPHINE GTT INITIATED AND COSIGNED BY LINDA HAYS. WILL MONITOR.
--- NOTE | 2017-03-25 11:00 | NUR ---
SISTER CATALINA AT BEDSIDE. FULL BATH GIVEN, REPOSITIONED TO COMFORT. MOUTH AND SKIN CARE PROVIDED.
--- NOTE | 2017-03-25 14:07 | PN- Hospice ---
Subjective Subjective: Pt. with agonal breathing and copious tracheal secretions. Appears comfortable on morphine drip at 2mg/hr. Objective Last 24 Hrs of Vital Signs/I&O Vital Signs Date Time Temp Pulse Resp B/P B/P Pulse O2 O2 Flow FiO2 Mean Ox Delivery Rate 03/25 1333 99.6 03/25 0915 98.8 03/25 0800 Nasal 2.0L Cannula 03/25 0700 98.5 03/25 0647 99.2 104 10 102/50 84 Nasal 2.0L Cannula 03/25 0606 99.2 03/25 0603 99.2 03/25 0135 99.5 03/25 0000 Nasal 2.0L Cannula 03/24 2232 99.3 03/24 2200 99.5 03/24 2151 99.4 03/24 2008 100.0 03/24 2000 100.0 03/24 1846 100.2 03/24 1830 100.2 03/24 1639 100.8 03/24 1630 100.8 03/24 1420 99.6 Intake & Output 03/25 1600 03/25 0800 03/25 0000 Intake Total Output Total 0 150 Balance 0 -150 Output, Urine 0 150 Physical Exam General Appearance: sedated, agonal breathing Head: oral mucosa dry Respiratory: agonal respirations, copious tracheal secretions Cardiovascular: regular rate/rhythm Extremities: no mottling Neurologic/Psychiatric: unresponsive Current Medications: Current Medications Sig/Mil Start time Last Medication Dose Route Stop Time Status Admin Acetaminophen 650 MG Q4 03/24 1000 AC 03/25 MT 1333 Aspirin 300 MG Q4P PRN 03/24 0845 AC 03/24 MT 1649 Bisacodyl 10 MG DAILY NEEDED PRN 03/20 1245 AC MT Glycerin/Mineral Oil 1 PARTH Q8P PRN 03/20 1245 AC TOP Glycopyrrolate 400 MCG Q4P PRN 03/25 0900 AC 03/25 SC 1328 Glycopyrrolate 400 MCG Q4P PRN 03/20 1300 DC 03/24 IV 1649 Lorazepam 1 MG Q6 03/25 1200 AC 03/25 SC 1328 Lorazepam 1 MG Q4P PRN 03/25 0900 AC SC Lorazepam 1 MG Q6 03/20 1800 DC 03/25 IV 0608 Lorazepam 1 MG Q4P PRN 03/20 1245 DC 03/23 IV 0831 Morphine Sulfate See Dose [id number] PRN 03/25 0900 AC 03/25 Insts (1) SC 1328 Morphine Sulfate 500 MG Q24H 03/25 0900 DC Dextrose/Water 50 ML IV Morphine Sulfate 500 MG Q24H 03/25 0900 AC 03/25 Dextrose/Water 50 ML SC 0955 Morphine Sulfate 100 MG Q24H 03/24 1315 DC 03/24 Dextrose/Water 100 ML IV 1416 Morphine Sulfate See Dose [id number] PRN 03/24 1315 DC 03/24 Insts (2) IV 2242 Scopolamine HBr 1 PAT Q72 03/23 1000 AC 03/23 TOP 0757 Dose Instructions: (1)Morphine Sulfate: TITRATION PROTOCOL: Pain score 1-4 (grimace/moan) give 50% basal rate (max 10mg) as bolus IV or Sub-Q every 20 minutes PRN x3 doses; Pain 5-10 (yelling or visibly distressed) or labored respirations or respiration rate greater than 20/minute give 100% basal rate (max 10mg) as bolus IV or Sub-Q every 20 minutes PRN x3 doses. If above symptoms not improved, increase basal rate by 100% (not more than 10mg increments), and repeat protocol, inform MD. (2)Morphine Sulfate: TITRATION PROTOCOL: Pain score 1-4 (grimace/moan) give 50% basal rate (max 10mg) as bolus IV or Sub-Q every 20 minutes PRN x3 doses; Pain 5-10 (yelling or visibly distressed) or labored respirations or respiration rate greater than 20/minute give 100% basal rate (max 10mg) as bolus IV or Sub-Q every 20 minutes PRN x3 doses. If above symptoms not improved, increase basal rate by 100% (not more than 10mg increments), and repeat protocol, inform MD. Assessment/Plan Assessment/Recommendations: Ms. Min is a 66-year-old female with medical history of recent finding of pancreatic Ca. vs. Cholangio Ca. 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 mass along tentorium. Actively dying. Schedule robinul for copious secretions. Continue morphine drip with titration protocol. Problem List: 1. UTI (urinary tract infection) 2. SDH (subdural hematoma) 3. Liver mass
--- NOTE | 2017-03-25 15:17 | PN- Att Addend ---
Attending Addendum Attending Brief Note Patient wasn't a bit more congested over 9 respiratory rate is between 8 and 1012 and IV access was lost so most of the medications were switched to subcutaneous and condition still poor foot care continuous
--- NOTE | 2017-03-25 23:36 | NUR ---
PATIENT AT 2245. PUPILS FIXED AND DILATED. ABSENT HEART RATE AND RESPIRATION FOR 1 FULL MINUTE. SISTER CATALINA NOTIFIED. GLUE MACHINE OPERATOR, DR. HILTON NOTIFIED AND DR. WING'S ANSWERING SERVICE WAS CALLED. [facility]OS[facility]ICE WAS ALSO CALLED BUT NO ONE ANSWERED THE PHONE. WAS UNABLE TO LEAVE A MESSAGE. WILL TRY AGAIN LATER. [facility] CALLED AND PATIENT'S BODY WAS DECLINED. FAMILY WILL NOT BE IN TONIGHT. CATALINA (SISTER), DECLINED AUTOPSY. VERIFIED/ CONFIRMED WITH CHARGE NURSE. REPORT GIVEN TO ONCOMING NURSE.
--- NOTE | 2017-03-26 15:00 | Discharge Summary ---
See Addendum Visit Information Visit Dates Admission Date: 03/20/17 Discharge Date: 03/26/17 Hospital Course Course Attending Physician: CB WING MD Primary Care Physician: MECCA CANAS,CB Hospital Course: Ms. Min is a 66-year-old female with medical history of recent finding of pancreatic Ca. vs. Cholangio Ca. 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 mass along tentorium. She was admitted to hospice service and kept comfortable on morphine drip, scheduled ativan and robinul until she passed peacefully. Allergies: Coded Allergies: pseudoephedrine (UNKNOWN PER 03/17/17) Disposition Summary Disposition Principal Diagnosis: Urinary tract infection Subdural hemorrhage, left, acute Liver mass Additional Diagnosis: Pancreatic vs. cholangio carcinoma Discharge Disposition: Discharge Instructions General Discharge Information Code Status: Hospice Patient's Diet: N/A Patient's Activity: N/A Follow-Up Instructions/Appts: N/A Copies To: CB WING MD
== END 2017-03-26 01:00 | disposition expired | DRG 64 ==
LOC: 2NA 12:11
PROVIDERS: ADMIT Internal Medicine
DX: I62.01 Nontraumatic acute subdural hemorrhage (principal); I63.9 Cerebral infarction, unspecified; C25.9 Malignant neoplasm of pancreas, unspecified; Z51.5 Encounter for palliative care; C22.1 Intrahepatic bile duct carcinoma; I69.354 Hemiplegia and hemiparesis following cerebral infarction affecting left non-dominant side; N39.0 Urinary tract infection, site not specified; R56.9 Unspecified convulsions; I48.2 Chronic atrial fibrillation; J44.9 Chronic obstructive pulmonary disease, unspecified; Z86.711 Personal history of pulmonary embolism; Z86.718 Personal history of other venous thrombosis and embolism; Z87.891 Personal history of nicotine dependence
CPT/HCPCS: 2NASP; J2175; J2270